=== PATIENT | female | born 1935 | race Hispanic/Latino ===

== ENCOUNTER 2017-09-06 18:02 | Emergency (ER) | payer MEDICARE ==
[2017-09-06 18:03] VITALS: BMI 21.1
--- NOTE | 2017-09-06 18:27 | ED PDOC ---
Arrival/HPI - General Historian: Patient, Family - History of Present Illness Time/Duration: Prior to Arrival (~ 4pm) Symptom Onset: Sudden Symptom Course: Unchanged Severity Level: Mild Activities at Onset: Other (walking) Context: Walking, Home - General Chief Complaint: Finger,Hand,&Wrist Time Seen by Provider: 09/06/17 18:04 - History of Present Illness Narrative History of Present Illness (Text): 09/06/17 18:23 pt p/w + accidental trip and fall ~ 4pm this afternoon while at home; pt states she fell with her left hand outstretched and left 4th finger suffered injury since the fall; pt is now unable to range the left 4th finger; + mild head injury but no syncope pre/post fall; pt states no fever/chills/sweats, no cp/sob /palpitations, no abd pain, no n/v, no numbness/tingling, no urinary/bowel changes, no gross bleeding; pt denied other complaints pt states no gross pain pt remained able to ambulate no slurr speech/facial changes noted PCP: andra pt is right hand dominate (Nnamdi Valladares) Past Medical History - Provider Review Nursing Documentation Reviewed: Yes - Travel History Have you recently traveled outside [place] w/in the past 3 mons?: No - Past History Past History: No Previous - Infectious Disease Hx of Infectious Diseases: None - Reproductive Menopause: Yes Currently : No - Cardiac Hx Cardiac Arrhythmia: Yes Hx Hypertension: Yes Other/Comment: Defib - Hematological/Oncological Hx Cancer: Yes (Leukemia) - Psychiatric Hx Substance Use: No - Surgical History Hx Joint Replacement: Yes (right knee replacement) Other/Comment: Left arm metal plate Family/Social History - Physician Review Nursing Documentation Reviewed: Yes Family/Social History: No Known Family HX Smoking Status: Never Smoked Hx Alcohol Use: No Hx Substance Use: No Hx Substance Use Treatment: No Allergies/Home Meds Allergies/Adverse Reactions: Allergies No Known Allergies Allergy (Verified 09/06/17 18:13) Home Medications: Home Meds Medication Instructions Recorded Confirmed Allopurinol [Zyloprim] 100 mg PO BID 09/06/17 09/06/17 Aspirin [Ecotrin] 81 mg PO DAILY 09/06/17 09/06/17 Carvedilol [Coreg] 6.25 mg PO BID 09/06/17 09/06/17 Colchicine [Colcrys] 0.6 mg PO DAILY 09/06/17 09/06/17 Digoxin [Lanoxin] 0.5 mg PO DAILY 09/06/17 09/06/17 Furosemide [Lasix] 10 mg PO DAILY 09/06/17 09/06/17 Saxagliptin HCl [Onglyza] 5 mg PO DAILY 09/06/17 09/06/17 Review of Systems - Review of Systems Constitutional: Normal Eyes: Normal ENT: Normal Respiratory: Normal Cardiovascular: Normal Gastrointestinal: Normal Genitourinary Female: Normal Musculoskeletal: Other (left 4th finger swelling/pain, decr ROM) Skin: Normal Neurological: Normal Endocrine: Normal Hemo/Lymphatic: Normal Physical Exam Vital Signs Reviewed: Yes Temperature: Afebrile Blood Pressure: Hypertensive Pulse: Regular Respiratory Rate: Normal Appearance: Positive for: Well-Appearing, Non-Toxic, Comfortable, Other (GCS = 15, oriented x 3, cooperative, sitting on exam table, NAD, follows command with ease; oriented x 3) Pain Distress: None Mental Status: Positive for: Alert and Oriented X 3 - Systems Exam Head: Present: Atraumatic, Normocephalic, Other (mild bi-temporal wasting) Pupils: Present: PERRL, Other (wearing eye glasses, visual field intact b/l, no nystagmus, no photophobia) Extroacular Muscles: Present: EOMI Conjunctiva: Present: Normal Ears: Present: Normal Mouth: Present: Moist Mucous Membranes Pharnyx: Present: Normal Nose (External): Present: Atraumatic Nose (Internal): Present: Normal Inspection Neck: Present: Normal Range of Motion, Trachea Midline, Other (no step off). No : Meningeal Signs, MIDLINE TENDERNESS Respiratory/Chest: Present: Clear to Auscultation, Good Air Exchange Cardiovascular: Present: Regular Rate and Rhythm, Normal S1, S2. No: Murmurs Abdomen: Present: Normal Bowel Sounds, Other (thin female, no focal tenderness, no masses/rebound/guarding/rigidity, no chapman's sign, no mcburney's point tenderness) Back: Present: Normal Inspection. No: CVA Tenderness, Midline Tenderness Upper Extremity: Present: NORMAL PULSES, Neurovascularly Intact, Other (+ left 4th finger deformities at PIP with + swelling/ecchymosis; decr ROM to left 4th finger, neurovasc intact b/l, strength 5-/5 b/l, rest of the upper limbs are normal) Lower Extremity: Present: Normal Inspection, NORMAL PULSES, Normal ROM, Neurovascularly Intact Neurological: Present: GCS=15, CN II-XII Intact, Speech Normal Skin: Present: Warm, Normal Color Psychiatric: Present: Alert, Oriented x 3 Vital Signs Temp Pulse Resp BP Pulse Ox 09/06/17 18:07 98.2 F 60 18 193/73 H 98 Medical Decision Making Re-evaluation Time: 19:54 Reassessment Condition: Improving,but remains with symptoms - RAD Interpretation Detail Drafter: ED Physician ED Course and Treatment: 09/06/17 19:08 -Request by Dr. Valladares to help with the reduction procedure. -Sensation intact, motor 5/5, lt. hand 4th digit PIPJ dorsal dislocation noted with the skin intact but the radiology film show there is 4th PIPJ fracture, axial traction with success by 1 attempt, finger splint applied with shasha tapping, sensation intact, motor 5/5. -Post reduction xray ordered which reduction with success and the fracture site is more obvious, pt. and the family is awared of the fracture. (Carl Trimble) 09/06/17 18:24 Impression: trip and fall, left hand injury i have consider all the differential diagnosis regarding pt's chief medical complaints/clinical findings, including but are not limited to: r/o fx/ dislocation A/P: left 4th finger pain/swelling - xray - ? splint - observe - supportive care 09/06/17 19:56 pt is doing well post reduction pt/family are made aware of pt's medical results pt is encouraged RICE txt pt is encouraged ice 15min/hr over the next 1-2 days pt will f/u as directed pt will be discharged (Nnamdi Valladares) - RAD Interpretation Narrative RAD Interpretations (Text): 09/06/17 19:55 left hand xray 1: + dislocation/avulsion fx to 4th digit left hand xray 2 (post reduction): relocated finger, + 4th finger prox phalanx fx (Nnamdi Valladares) Radiology Orders: 09/06/17 18:22 HAND LEFT 3 VIEWS ROUTINE [RAD] Stat 09/06/17 19:08 HAND LEFT 4TH DIGIT (FINGER) [RAD] Stat - Medication Orders Current Medication Orders: Discontinued Medications Oxycodone/Acetaminophen (Percocet 5/325 Mg Tab) 1 tab PO STAT STA Stop: 09/06/17 19:05 Last Admin: 09/06/17 19:36 Dose: Not Given Non-Admin Reason: Patient Refused Disposition/Present on Arrival - Present on Arrival Any Indicators Present on Arrival: No History of DVT/PE: No History of Uncontrolled Diabetes: No Urinary Catheter: No History of Decub. Ulcer: No History Surgical Site Infection Following: None - Disposition Have Diagnosis and Disposition been Completed?: Yes Disposition Time: 19:49 Patient Plan: Discharge - Disposition Diagnosis: Dislocation, finger closed, Finger fracture, left Disposition: HOME/ ROUTINE Patient Problems: Current Active Problems Problem Status Onset Dislocation, finger closed Acute Finger fracture, left Acute Condition: STABLE Discharge Instructions (ExitCare): Finger Fracture, Finger Dislocation (DC) Print Language: KENYAN Additional Instructions: Make sure to see your doctor in 1-2 days DRINK PLENTY OF FLUIDS KEEP the splint clean and dry ICE your hand 15min/hr over the next 1-2 days take your medications as prescribed RETURN TO ED IF worse pain, cant breath, persistent vomiting, high fever >101- 102 for hours, altered behavior, unable to urinate, heavy/persistent bleeding, passing out, chest pain, or other medical emergencies Prescriptions: traMADol [Ultram] 50 mg PO BID PRN #12 tab PRN Reason: Pain, Moderate (4-7) Referrals: Suzanna Yeung MD [Staff Provider] - Follow up with primary Juan Jose Johnson MD [Staff Provider] - Follow up with primary Forms: [employer] (Romanian)
[2017-09-06] MEDS ORDERED: Oxycodone/Acetaminophen 5/325 mg Tab PO STA (19:04)
[2017-09-06 19:59] VITALS: BP 176/82; PULSE 65; RESP 17; TEMP 98.1; O2SAT 99
--- NOTE | 2017-09-07 09:05 | RAD ---
PROCEDURE: Left Hand Radiographs. HISTORY: left hand, 4th finger pain, s/p trip and fall COMPARISON: None. FINDINGS: BONES: There is no fracture appreciate or destructive bony lesion. JOINTS: NormalThere is a dislocation of the middle phalanx posterior to the proximal phalanx left ring finger with potential chip or avulsion fracture related to the base of the middle phalanx. Limited local soft tissue edema is identified. Otherwise, degenerative changes seen throughout the digits diffusely, which appear severe. Similar severe degenerative changes seen at the basal joint and the navicular trapezium and navicular trapezius articulations. SOFT TISSUES: Normal. OTHER FINDINGS: None. IMPRESSION: Dorsal dislocation middle phalanx relative to the proximal phalanx left ring finger with potential tiny avulsion fracture related to the base of the middle phalanx.
--- NOTE | 2017-09-07 09:43 | RAD ---
PROCEDURE: Left ring finger radiographs. HISTORY: post reduction COMPARISON: Left hand radiographs 09/06/2014. TECHNIQUE: AP radiograph of the left hand, as well as spot oblique and lateral images of left ring finger were obtained. FINDINGS: LEFT RING FINGER: Middle phalanx left ring finger is been reduced with a tiny chip or avulsion fracture seen at the volar side of the joint within soft tissues with limited local soft tissue edema surrounding the joint. No additional fracture identified. JOINTS: As above. SOFT TISSUES: As above. OTHER FINDINGS: None. IMPRESSION: Anatomy reduction of middle phalanx dislocation left ring finger with tiny chip fracture seen anterior to the proximal interphalangeal joint as discussed above.
== END 2017-09-06 19:58 | disposition home or self-care (01) ==
LOC: ED 18:02
DX: S62.615A Displaced fracture of proximal phalanx of left ring finger, initial encounter for closed fracture (principal); W01.0XXA Fall on same level from slipping, tripping and stumbling without subsequent striking against object, initial encounter; Y92.009 Unspecified place in unspecified non-institutional (private) residence as the place of occurrence of the external cause

== ENCOUNTER 2018-07-04 23:09 | Inpatient (IN) | payer MEDICARE ==
[2018-07-04 23:23] VITALS: BMI 20.5
--- NOTE | 2018-07-05 00:33 | ED PDOC ---
Arrival/HPI - General Chief Complaint: Trauma Time Seen by Provider: 07/04/18 23:09 Historian: Patient, Family - History of Present Illness Narrative History of Present Illness (Text): 07/04/18 23:15 83 year old female, whose past medical history includes a-fib and CHF, presents to the emergency department brought in by family after she tripped and hit the back of her head on a wooden piece of couch approximately 6 hours prior to arrival. Patient denies any symptoms prior to fall. Patient is not on any blood thinners. Patient recalls the event and denies any loss of consciousness. Patient is complaining of neck pain, but denies any fever, chills, chest pain, shortness of breath, nausea, vomiting, diarrhea, urinary symptoms, back pain, headache, dizziness, or any other complaints. PMD: Dr. Balderas Time/Duration: Other (6 hours) Symptom Onset: Sudden Symptom Course: Unchanged Activities at Onset: Light Context: Tripped Past Medical History - Provider Review Nursing Documentation Reviewed: Yes - Past History Past History: No Previous - Infectious Disease Hx of Infectious Diseases: None - Cardiac Hx Cardiac Arrhythmia: Yes Hx Hypertension: Yes Other/Comment: Defib. AICD - Hematological/Oncological Hx Cancer: Yes (Leukemia) - Psychiatric Hx Substance Use: No - Surgical History Hx Joint Replacement: Yes (right knee replacement) Other/Comment: Left arm metal plate - Anesthesia Hx Anesthesia: Yes Hx Anesthesia Reactions: No Hx Malignant Hyperthermia: No Family/Social History - Physician Review Nursing Documentation Reviewed: Yes Family/Social History: No Known Family HX Smoking Status: Never Smoked Hx Alcohol Use: No Hx Substance Use: No Hx Substance Use Treatment: No Allergies/Home Meds Allergies/Adverse Reactions: Allergies No Known Allergies Allergy (Verified 09/06/17 18:13) Home Medications: Home Meds Medication Instructions Recorded Confirmed Aspirin [Ecotrin] 81 mg PO DAILY 09/06/17 07/04/18 Carvedilol [Coreg] 6.25 mg PO BID 09/06/17 07/04/18 Saxagliptin HCl [Onglyza] 5 mg PO DAILY 09/06/17 07/04/18 Bosutinib [Bosulif] 100 mg PO TID 07/04/18 07/04/18 Digoxin 0.125 mg PO DAILY 07/04/18 07/04/18 Furosemide [Lasix] 20 mg PO DAILY 07/04/18 07/04/18 [id number] Ethyl Esters [OMEGA 3] 1 tab PO DAILY 07/04/18 07/04/18 Ubidecarenone [Coq-10] 100 mg PO DAILY 07/04/18 07/04/18 Vit C/E/Zn/Coppr/Lutein/Zeaxan 1 tab PO DAILY 07/04/18 07/04/18 [Preservision Areds 2 Softgel] Review of Systems - Physician Review All systems were reviewed & negative as marked: Yes - Review of Systems Constitutional: absent: Fevers, Other (Chills) Respiratory: absent: SOB Cardiovascular: absent: Chest Pain Gastrointestinal: absent: Diarrhea, Nausea, Vomiting Genitourinary Female: absent: Dysuria, Frequency, Hematuria Musculoskeletal: Neck Pain. absent: Back Pain Neurological: absent: Headache, Dizziness, Other (loc) Physical Exam Vital Signs Reviewed: Yes Vital Signs Temp Pulse Resp BP Pulse Ox 07/04/18 23:25 97.3 F L 87 18 172/77 H 98 Temperature: Afebrile Blood Pressure: Hypertensive Pulse: Regular Respiratory Rate: Normal Appearance: Positive for: Well-Appearing, Non-Toxic, Comfortable Pain Distress: None Mental Status: Positive for: Alert and Oriented X 3 - Systems Exam Head: Present: Atraumatic, Normocephalic Pupils: Present: PERRL Extroacular Muscles: Present: EOMI Conjunctiva: Present: Normal Mouth: Present: Moist Mucous Membranes Neck: Present: Normal Range of Motion Respiratory/Chest: Present: Clear to Auscultation, Good Air Exchange. No: Respiratory Distress, Accessory Muscle Use Cardiovascular: Present: Regular Rate and Rhythm, Normal S1, S2. No: Murmurs Abdomen: No: Tenderness, Distention, Peritoneal Signs Back: Present: Normal Inspection Upper Extremity: Present: Normal Inspection. No: Cyanosis, Edema Lower Extremity: Present: Normal Inspection. No: Edema Neurological: Present: GCS=15, CN II-XII Intact, Speech Normal Skin: Present: Warm, Dry, Normal Color. No: Rashes Psychiatric: Present: Alert, Oriented x 3, Normal Insight, Normal Concentration Medical Decision Making ED Course and Treatment: 07/04/18 23:15 Impression: 83 year old female presents complaining of neck pain after she tripped and hit the back of her head on a wooden piece of couch approximately 6 hours ago. Plan: -- Cervical Spine w/o contrast CT -- Head CT w/o Contrast -- Reassess and disposition Progress Notes: EXAM: CT scan of the head. Electronically signed on Jul 05, 2018 12:19:28 AM EST by: Sesar Lucio M.D. IMPRESSION: 1. Age-appropriate cerebellar and cerebral atrophy. 2. Mild chronic microvascular disease. 3. No evidence of acute intracranial pathology. EXAM: CT scan of the cervical spine without contrast. Electronically signed on Jul 05, 2018 12:29:51 AM EST by: Sesar Lucio M.D. Impression: Oblique displaced fracture of the base of the odontoid. An emergent surgical consultation is recommended. 07/05/18 00:[address] Mora who is aware and agrees with the plan. He recommends patient be place in a c-collar and to admit patient. 07/05/18 00:48 C-Collar placed around patient's neck. 07/05/18 00:53 Case discussed with medical record retrieval specialist and Dr. Su who is aware and agrees with the plan. Accepts patient into hospitalist service. 07/05/18 01:12 EKG shows sinus rhythm at 80 BPM with PVCs. LAD. Interpreted by me. - RAD Interpretation Radiology Orders: 07/04/18 23:23 CERVICAL SPINE W/O CONTRAST [CT] Stat HEAD W/O CONTRAST [CT] Stat - Scribe Statement The provider has reviewed the documentation as recorded by the Skip Coppola Provider Scribe Attestation: All medical record entries made by the Jamilahibkristy were at my direction and personally dictated by me. I have reviewed the chart and agree that the record accurately reflects my personal performance of the history, physical exam, medical decision making, and the department course for this patient. I have also personally directed, reviewed, and agree with the discharge instructions and disposition. Disposition/Present on Arrival - Present on Arrival Any Indicators Present on Arrival: No History of DVT/PE: No History of Uncontrolled Diabetes: No Urinary Catheter: No History of Decub. Ulcer: No History Surgical Site Infection Following: None - Disposition Have Diagnosis and Disposition been Completed?: Yes Diagnosis: C2 cervical fracture Disposition: HOSPITALIZED Disposition Time: 00:55 Condition: GUARDED
--- NOTE | 2018-07-05 00:58 | CP.PCM.HP ---
<Stephen Conn - Last Filed: 07/05/18 03:46> History of Present Illness - History of Present Illness History of Present Illness: PGY-1 H&P for Dr. Su CC: Neck pain s/p mechanical fall HPI: Patient is an 83 year old female, whose past medical history includes atrial fibrillation with AICD (on ASA), CHF, [place], leukemia (on Bosutinib), DM, gout, macular degeneration, presented to the emergency department brought in by daughter after she tripped and hit the back of her head on a wooden piece of couch approximately 6 hours prior to arrival. Patient states that she just got home from having dinner with her friends and tripped. She denies feeling dizzy, weak, or any other symptoms prior to her fall. She denies losing consciousness before or after the fall and remembers everything that happened. Patient is on Aspirin and denies being on blood thinners. Patient denies any fever, chills, chest pain, shortness of breath, nausea, vomiting, diarrhea, urinary symptoms, back pain, headache, dizziness, or any other complaints. 12 sytem ROS reviewed and negative except mentioned in HPI PMHx: Atrial fibrillation with AICD (only on ASA), IN, CHF, leukemia (on Bosutinib), DM, gout, macular degeneration PSHx: R Knee replacement, left arm metal plate Social Hx: denies tobacco, or, and drug use. 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 Family Hx: Brother of [place] age 54, another brother in his 20's for cardiac reasons. Allergies:NKDA Meds: see AUG PMD: Dr. Balderas Ship Propeller Finisher: Dr. Goff Heme/onc: Dr. Moore POC: Criselda (daughter): [phone] Present on Admission - Present on Admission Any Indicators Present on Admission: No History of DVT/PE: No History of Uncontrolled Diabetes: No Urinary Catheter: No Decubitus Ulcer Present: No Review of Systems - Review of Systems All systems: reviewed and no additional remarkable complaints except Past Patient History - Infectious Disease Hx of Infectious Diseases: None - Past Social History Smoking Status: Never Smoked - CARDIAC Hx Cardia Arrhythmia: Yes Hx Hypertension: Yes Other/Comment: Defib. AICD - HEMATOLOGICAL/ONCOLOGICAL Hx Cancer: Yes (Leukemia) - PSYCHIATRIC Hx Substance Use: No - SURGICAL HISTORY Hx Joint Replacement: Yes (right knee replacement) Other/Comment: Left arm metal plate - ANESTHESIA Hx Anesthesia: Yes Hx Anesthesia Reactions: No Hx Malignant Hyperthermia: No Meds Allergies/Adverse Reactions: Allergies Allergy/AdvReac Type Severity Reaction Status Date / Time No Known Allergies Allergy Verified 09/06/17 18:13 Physical Exam - Constitutional Appears: Well, Non-toxic, No Acute Distress - Head Exam Head Exam: ATRAUMATIC, NORMAL INSPECTION - Eye Exam Eye Exam: EOMI, Normal appearance. absent: Scleral icterus Pupil Exam: NORMAL ACCOMODATION - ENT Exam ENT Exam: Mucous Membranes Moist, Normal Exam - Neck Exam Additional comments: Cervical collar in place - Respiratory Exam Respiratory Exam: Clear to Auscultation Bilateral. absent: Rales, Rhonchi, Wheezes, Respiratory Distress - Cardiovascular Exam Cardiovascular Exam: REGULAR RHYTHM, +S1, +S2. absent: Gallop, Rubs, Systolic Murmur - GI/Abdominal Exam GI & Abdominal Exam: Normal Bowel Sounds, Soft. absent: Firm, Guarding, Tenderness - Extremities Exam Extremities exam: Positive for: normal inspection, pedal pulses present. Negative for: calf tenderness, pedal edema - Neurological Exam Neurological exam: Alert, CN II-XII Intact, Normal Gait, Oriented x3 Additional comments: Rapid alternating movement intact, no sensory and motor deficits on upper and lower extremities. - Psychiatric Exam Psychiatric exam: Normal Affect, Normal Mood - Skin Skin Exam: Dry, Intact, Normal Color, Warm Results - Vital Signs Recent Vital Signs: Last Vital Signs Temp 97.3 F L 07/04/18 23:25 Pulse 87 07/04/18 23:25 Resp 18 07/04/18 23:25 BP 172/77 H 07/04/18 23:25 Pulse Ox 98 07/04/18 23:25 - Labs Result Diagrams: 07/05/18 00:52 07/05/18 00:52 Assessment & Plan - Assessment and Plan (Free Text) Assessment: Patient is an 83 year old female, whose past medical history includes atrial fibrillation with AICD (on ASA), CHF, leukemia (on Bosutinib), DM, gout, macular degeneration, presenting with neck pain after a mechanical fall. Plan: Neck pain s/p mechanical fall - Head CT: Age-appropriate cerebellar and cerebral atrophy. Mild chronic microvascular disease. No evidence of acute intracranial pathology. - CT Cervical spine: Oblique displaced fracture of the base of the odontoid. An emergent surgical consultation is recommended. - Neurosurgery consulted, Dr. Mora - Keep cervical collar on until cleared by neurosurgery - Neuro and neurovascular checks Q4 - Keep patient NPO - IVF: NS @ 50 mls/hr - Aspiration precautions - Tylenol 650mg PO Q6 PRN Abnormal EKG - Patient is asymptomatic, has prior history of IN's - EKG: Sinus rhythm with occ premature ventricular complexes. T wave abnormality, consider lateral ischemia - Serial EKG's - Troponin:0.06 x 1 - Trend Troponins - Cardiology consulted, Dr. Goff Transaminitis - AST/ALT: 50/31 - Continue to monitor CKD, possible stage 3 - BUN/Cr: 43/1.4 - Avoid nephrotoxic agents - Continue to monitor History of Atrial fibrillation - Aspirin 81mg PO QD - Coreg 6.25mg PO BID Hx of reduced ejection fraction heart failure - Lasix 20mg PO QD - Digoxin 0.125 PO QD - Digoxin level ordered Hx of diabetes - Patient unsure of diabetes status - Hold diabetic medications - HbA1C ordered Prophylaxis: - GI: Protonix 40mg IVP QD Case discussed with Dr. Sharlene Conn, PGY-1 <Lois Su - Last Filed: 07/05/18 05:01> Results - Vital Signs Recent Vital Signs: Last Vital Signs Temp 97.8 F 07/05/18 02:00 Pulse 82 07/05/18 02:00 Resp 20 07/05/18 02:23 BP 163/69 H 07/05/18 02:00 Pulse Ox 97 07/05/18 02:00 - Labs Result Diagrams: 07/05/18 00:52 07/05/18 00:52 Labs: Laboratory Results - last 24 hr 07/05/18 07/05/18 07/05/18 00:52 00:52 00:52 WBC 21.2 H RBC 4.02 Hgb 12.9 Hct 39.4 MCV 98.0 MCH 32.1 MCHC 32.7 RDW 14.2 Plt Count 229 MPV 11.2 H Gran % 76.0 H Lymph % (Auto) 14.8 L [place] % (Auto) 8.5 H Eos % (Auto) 0.2 L Baso % (Auto) 0.5 Gran # 16.14 H Lymph # (Auto) 3.1 [place] # (Auto) 1.8 H Eos # (Auto) 0.1 Baso # (Auto) 0.10 PT 11.0 INR 0.97 APTT 25.3 Sodium 143 Potassium 4.7 Chloride 106 Carbon Dioxide 29 Anion Gap 13 BUN 43 H Creatinine 1.4 H Est GFR ( Amer) 43 Est GFR (Non-Af Amer) 36 Random Glucose 157 H Calcium 9.3 Total Bilirubin 0.5 AST 50 H ALT 31 Alkaline Phosphatase 154 H Lactate Dehydrogenase Total Creatine Kinase Troponin I Total Protein 7.9 Albumin 4.1 Globulin 3.8 Albumin/Globulin Ratio 1.1 Digoxin 07/05/18 07/05/18 00:52 00:52 WBC RBC Hgb Hct MCV MCH MCHC RDW Plt Count MPV Gran % Lymph % (Auto) [place] % (Auto) Eos % (Auto) Baso % (Auto) Gran # Lymph # (Auto) [place] # (Auto) Eos # (Auto) Baso # (Auto) PT INR APTT Sodium Potassium Chloride Carbon Dioxide Anion Gap BUN Creatinine Est GFR ( Amer) Est GFR (Non-Af Amer) Random Glucose Calcium Total Bilirubin AST ALT Alkaline Phosphatase Lactate Dehydrogenase 700 H Total Creatine Kinase 82 Troponin I 0.06 Total Protein Albumin Globulin Albumin/Globulin Ratio Digoxin 0.5 L Attending/Attestation - Attestation I have personally seen and examined this patient.: Yes I have fully participated in the care of the patient.: Yes I have reviewed all pertinent clinical information: Yes Notes (Text): 07/05/18 05:00 Patient was seen when she was in bed # 3 in the ER. Agree with history, physical examination, assessment and plan.
[2018-07-05 01:07] LABS: BASO # 0.1 K/mm3 (0.0-2.0); BASO % 0.5 % (0.0-3.0); EOS # 0.1 (0.0-0.7); EOS % 0.2 % (1.5-5.0); GRAN # 16.14 (1.4-6.5); HEMOGLOBIN 12.9 g/dL (12.0-16.0); LYMPH # 3.1 (1.2-3.4); LYMPH % 14.8 % (22.0-35.0); MEAN CORPUSCULAR HEMOGLOBIN 32.1 pg (25.0-35.0); MEAN CORPUSCULAR HGB CONC 32.7 g/dl (31.0-37.0); MEAN PLATELET VOLUME 11.2 fl (7.0-11.0); MONO # 1.8 (0.1-0.6); MONO % 8.5 % (1.0-6.0); RBC 4.02 10^6/uL (3.5-6.1); RED CELL DISTRIBUTION WIDTH 14.2 % (11.5-14.5); WHITE BLOOD COUNT 21.2 10^3/uL (4.5-11.0)
[2018-07-05 01:10] LABS: ALB/GLOB RATIO 1.1 (1.1-1.8); ALBUMIN 4.1 g/dL (3.0-4.8); CALCIUM 9.3 mg/dL (8.4-10.5)
[2018-07-05 01:18] LABS: INR 0.97; PARTIAL THROMBOPLASTIN TIME 25.3 Seconds (25.1-36.5)
[2018-07-05 02:12] LABS: TROPONIN I 0.06 ng/mL
[2018-07-05 06:22] LABS: BASO # 0.14 K/mm3 (0.0-2.0); BASO % 0.6 % (0.0-3.0); EOS # 0.1 (0.0-0.7); EOS % 0.4 % (1.5-5.0); GRAN # 15.72 (1.4-6.5); GRAN % 71.2 % (50.0-68.0); HEMOGLOBIN 11.9 g/dL (12.0-16.0); LYMPH # 3.3 (1.2-3.4); MEAN CELL VOLUME 96.8 fl (80.0-105.0); MEAN CORPUSCULAR HEMOGLOBIN 31.6 pg (25.0-35.0); MEAN CORPUSCULAR HGB CONC 32.6 g/dl (31.0-37.0); MEAN PLATELET VOLUME 10.9 fl (7.0-11.0); MONO # 2.8 (0.1-0.6); MONO % 12.8 % (1.0-6.0); RBC 3.77 10^6/uL (3.5-6.1); RED CELL DISTRIBUTION WIDTH 14.2 % (11.5-14.5); WHITE BLOOD COUNT 22.1 10^3/uL (4.5-11.0)
[2018-07-05 06:34] LABS: ALBUMIN 3.6 g/dL (3.0-4.8)
[2018-07-05] MEDS: Sodium Chloride 0.9% 1,000 ML IV SCH (08:03)
--- NOTE | 2018-07-05 08:17 | CARD ---
APPROVED REPORT Date of service: 07/05/2018 EKG Measurement Heart [id number] <Conclusion> Sinus rhythm with occasional premature ventricular complexes Left axis deviation Nonspecific intraventricular block Anteroseptal infarct, age undetermined T wave abnormality, consider lateral ischemia Abnormal ECG
--- NOTE | 2018-07-05 09:04 | CP.PCM.CON ---
History of Present Illness - History of Present Illness History of Present Illness: fall type 2 odoantoid fracture Patient is an 83 year old female, whose past medical history includes atrial fibrillation with AICD (on ASA), CHF, [place], leukemia (on Bosutinib), DM, gout, macular degeneration, presented to the emergency department brought in by daughter after she tripped and hit the back of her head on a wooden piece of couch approximately 6 hours prior to arrival. Patient states that she just got home from having dinner with her friends and tripped. She denies feeling dizzy, weak, or any other symptoms prior to her fall. She denies losing consciousness before or after the fall and remembers everything that happened. Patient is on Aspirin and denies being on blood thinners CT shows type 2 odoantoid fractaure displaced Past Patient History - Infectious Disease Hx of Infectious Diseases: None - Past Social History Smoking Status: Never Smoked - CARDIAC Hx Cardia Arrhythmia: Yes Hx Hypertension: Yes Other/Comment: Defib. AICD - HEMATOLOGICAL/ONCOLOGICAL Hx Cancer: Yes (Leukemia) - MUSCULOSKELETAL/RHEUMATOLOGICAL Hx Falls: Yes - PSYCHIATRIC Hx Substance Use: No - SURGICAL HISTORY Hx Joint Replacement: Yes (right knee replacement) Other/Comment: Left arm metal plate - ANESTHESIA Hx Anesthesia: Yes Hx Anesthesia Reactions: No Hx Malignant Hyperthermia: No Meds Allergies/Adverse Reactions: Allergies Allergy/AdvReac Type Severity Reaction Status Date / Time No Known Allergies Allergy Verified 09/06/17 18:13 - Medications Medications: Current Medications Acetaminophen (Tylenol 325mg Tab) 650 mg PO Q6H PRN PRN Reason: Pain, moderate (4-7) Aspirin (Ecotrin) 81 mg PO DAILY [facility] Carvedilol (Coreg) 6.25 mg PO BID [facility] Digoxin (Digoxin) 0.125 mg PO DAILY [facility] Furosemide (Lasix) 20 mg PO DAILY [facility] Heparin Sodium (Porcine) (Heparin) 5,000 units SC Q12 [facility]; Protocol Sodium Chloride (Sodium Chloride 0.9%) 1,000 mls @ 50 mls/hr IV .Q20H [facility] Last Admin: 07/05/18 08:03 Dose: 50 mls/hr Bosutinib [Bosulif] (100 Mg (Home Med)) 100 mg PO TID [facility] Pantoprazole Sodium (Protonix Inj) 40 mg IVP DAILY [facility] awake alert has good st for agae no focal weakness dtr 0/4 no sensory deficits Results - Vital Signs Recent Vital Signs: Last Vital Signs Temp 97.8 F 07/05/18 06:00 Pulse 84 07/05/18 06:00 Resp 20 07/05/18 06:00 BP 160/91 H 07/05/18 06:00 Pulse Ox 96 07/05/18 06:00 - Labs Result Diagrams: 07/05/18 05:00 07/05/18 05:00 Labs: Laboratory Results - last 24 hr 07/05/18 07/05/18 07/05/18 00:52 00:52 00:52 WBC 21.2 H RBC 4.02 Hgb 12.9 Hct 39.4 MCV 98.0 MCH 32.1 MCHC 32.7 RDW 14.2 Plt Count 229 MPV 11.2 H Gran % 76.0 H Lymph % (Auto) 14.8 L Elliott % (Auto) 8.5 H Eos % (Auto) 0.2 L Baso % (Auto) 0.5 Gran # 16.14 H Lymph # (Auto) 3.1 Elliott # (Auto) 1.8 H Eos # (Auto) 0.1 Baso # (Auto) 0.10 PT 11.0 INR 0.97 APTT 25.3 Sodium 143 Potassium 4.7 Chloride 106 Carbon Dioxide 29 Anion Gap 13 BUN 43 H Creatinine 1.4 H Est GFR ( Amer) 43 Est GFR (Non-Af Amer) 36 Random Glucose 157 H Calcium 9.3 Total Bilirubin 0.5 AST 50 H ALT 31 Alkaline Phosphatase 154 H Lactate Dehydrogenase Total Creatine Kinase Troponin I Total Protein 7.9 Albumin 4.1 Globulin 3.8 Albumin/Globulin Ratio 1.1 Digoxin 07/05/18 07/05/18 07/05/18 00:52 00:52 05:00 WBC 22.1 H RBC 3.77 Hgb 11.9 L Hct 36.5 MCV 96.8 MCH 31.6 MCHC 32.6 RDW 14.2 Plt Count 209 MPV 10.9 Gran % 71.2 H Lymph % (Auto) 15.0 L Elliott % (Auto) 12.8 H Eos % (Auto) 0.4 L Baso % (Auto) 0.6 Gran # 15.72 H Lymph # (Auto) 3.3 Elliott # (Auto) 2.8 H Eos # (Auto) 0.1 Baso # (Auto) 0.14 PT INR APTT Sodium Potassium Chloride Carbon Dioxide Anion Gap BUN Creatinine Est GFR ( Amer) Est GFR (Non-Af Amer) Random Glucose Calcium Total Bilirubin AST ALT Alkaline Phosphatase Lactate Dehydrogenase 700 H Total Creatine Kinase 82 Troponin I 0.06 Total Protein Albumin Globulin Albumin/Globulin Ratio Digoxin 0.5 L 07/05/18 05:00 WBC RBC Hgb Hct MCV MCH MCHC RDW Plt Count MPV Gran % Lymph % (Auto) Elliott % (Auto) Eos % (Auto) Baso % (Auto) Gran # Lymph # (Auto) Elliott # (Auto) Eos # (Auto) Baso # (Auto) PT INR APTT Sodium 141 Potassium 4.4 Chloride 107 Carbon Dioxide 29 Anion Gap 9 L BUN 36 H Creatinine 1.2 Est GFR ( Amer) 52 Est GFR (Non-Af Amer) 43 Random Glucose 135 H Calcium 9.0 Total Bilirubin 0.4 AST 48 H ALT 37 Alkaline Phosphatase 150 H Lactate Dehydrogenase Total Creatine Kinase Troponin I Total Protein 7.1 Albumin 3.6 Globulin 3.5 Albumin/Globulin Ratio 1.0 L Digoxin Assessment & Plan - Assessment and Plan (Free Text) Assessment: type 2 odontoid fracture displaced this has an extremely low possibility of healing without fusion/fixation Need to talk to daughter later today this needs to be arranged electivly as she will need med clearance and will have to get implants in. In mean time keep in bed with collar on
[2018-07-05] MEDS: Digoxin 125 mcg (0.125 mg) Tab PO SCH (09:55)
[2018-07-05 10:10] LABS: TROPONIN I 0.14 ng/mL
--- NOTE | 2018-07-05 10:30 | CT ---
Date of service: 07/04/2018 PROCEDURE: CT Cervical Spine without contrast HISTORY: s/p fall r/o fx COMPARISON: None available. TECHNIQUE: Axial computed tomography images were obtained of the cervical spine without the use of intravenous contrast. Coronal and sagittal reformatted images were created and reviewed. Radiation dose: Total exam DLP = 395.89 mGy-cm. This CT exam was performed using one or more of the following dose reduction techniques: Automated exposure control, adjustment of the mA and/or kV according to patient size, and/or use of iterative reconstruction technique. FINDINGS: VERTEBRAE: The vertebral bodies are maintained in height. There is an oblique fracture through the base of the odontoid process. It is mildly displaced with the cephalad fragment displaced dorsally by approximately 5 mm. There is no resulting narrowing of the central spinal canal. There is no other fracture identified. The atlantoaxial articulation is preserved. DISCS/SPINAL CANAL/NEURAL FORAMINA: There narrowing of the C4-5, C5-6 and C6-7 intervertebral disc spaces consistent with degenerative disc disease. Multilevel neural foraminal stenosis is noted bilaterally. PARASPINAL SOFT TISSUES: No prevertebral soft tissue swelling. OTHER FINDINGS: None. IMPRESSION: Displaced oblique fracture mid odontoid process without evidence of central spinal canal stenosis. The chronicity of this fracture is not evident from this examination. Multilevel degenerative disc disease as described. The preliminary findings for this examination were reported by [facility] at 12:29 a.m. on 07/05/2018. There is concurrence of this report with the preliminary findings.
--- NOTE | 2018-07-05 12:37 | CT ---
Date of service: 07/04/2018 PROCEDURE: CT HEAD WITHOUT CONTRAST. HISTORY: s/p fall r/o ICH and fx COMPARISON: None available. TECHNIQUE: Axial computed tomography images were obtained through the head/brain without intravenous contrast. Radiation dose: Total exam DLP = 853.75 mGy-cm. This CT exam was performed using one or more of the following dose reduction techniques: Automated exposure control, adjustment of the mA and/or kV according to patient size, and/or use of iterative reconstruction technique. FINDINGS: HEMORRHAGE: No intracranial hemorrhage. BRAIN: No mass effect or edema. Mild diffuse age-appropriate cerebral atrophy. Patchy and confluent deep/subcortical and periventricular white matter lucency consistent with age-related microvascular white matter ischemic change. No evidence of acute infarct. VENTRICLES: Unremarkable. No hydrocephalus. CALVARIUM: Unremarkable. PARANASAL SINUSES: Unremarkable as visualized. No significant inflammatory changes. MASTOID AIR CELLS: Unremarkable as visualized. No inflammatory changes. OTHER FINDINGS: None. IMPRESSION: No intracranial mass, hemorrhage or evidence of acute infarct. Chronic white matter ischemic change. Age related atrophy. The preliminary findings for this examination were reported by [facility] at 12:19 a.m. on 07/05/2018. There is concurrence of this report with the preliminary findings.
[2018-07-05 12:39] LABS: HDL CHOLESTEROL 69 mg/dL (29-60)
[2018-07-05 12:50] LABS: LDL CHOLESTEROL 90 mg/dL (0-129)
[2018-07-05] MEDS ORDERED: Digoxin 125 mcg (0.125 mg) Tab PO SCH (14:00)
--- NOTE | 2018-07-05 14:20 | CON ---
DATE: 07/05/2018 REASON FOR CONSULTATION: Preoperative evaluation, coronary artery disease, and atrial fibrillation. REQUESTING PHYSICIAN: Dr. Yancey. HISTORY: This is an 83-year-old woman known to us from outpatient followup with a history of prior myocardial infarction, paroxysmal atrial fibrillation, left ventricular dysfunction, status post ICD implant as well as a history of diabetes and chronic leukemia, who presents to the emergency room after a fall at home. She apparently had a mechanical fall after tripping. She denies any loss of consciousness. She is unaware of any palpitations and had no defibrillator firing to the best of her knowledge. Following her fall, she presented to the emergency room. A cervical spine CT showed evidence of a displaced fracture of the base of the odontoid. She has been seen by Dr. Mora, who is recommending neurosurgical intervention as he feels the displaced fracture will not heal well spontaneously. She denies any recent chest pain. She has had no recent defibrillator firings. She is unaware of any palpitations. She has had paroxysmal atrial fibrillation in the past, but is not on anticoagulant therapy at this time. PAST MEDICAL HISTORY: Her past history is notable for the problems mentioned above. She does have a history of non-insulin dependent diabetes mellitus, gout and arthritis. She underwent prior right knee replacement as well as surgery on her left arm. ALLERGIES: NONE. MEDICATIONS: Current medications include bosutinib, carvedilol 6.25 mg b.i.d., digoxin 0.125 mg daily, Ecotrin once daily, Lasix 20 mg daily, Onglyza 5 mg daily. SOCIAL HISTORY: She does not smoke or drink. 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 FAMILY HISTORY: Both parents from age-related illness. One brother from myocardial infarction at the age of 54, another brother from heart disease in his 20s, details were unclear. REVIEW OF SYSTEMS: Ten-point review of systems is otherwise unremarkable. PHYSICAL EXAMINATION: GENERAL: She is a somewhat frail-appearing very elderly woman. VITAL SIGNS: Her blood pressure is 160/70 with a pulse of 84 and regular, respirations are 14. She is afebrile. HEENT: Her neck is in a cervical collar. CHEST: Few scattered rhonchi heard. HEART: PMI is diplaced laterally with soft heart tones and a systolic murmur at the lower left sternal border. ABDOMEN: The abdomen is soft and nontender with normoactive bowel sounds. EXTREMITIES: No clubbing, cyanosis, or edema. SKIN: Warm and dry. PSYCHIATRIC: Normal mood and affect. NEUROLOGIC: No gross motor or sensory deficits notable. DIAGNOSTIC DATA: Her white count 22.1, hemoglobin and hematocrit 11.9 and 36.5 with a platelet count of 209,000. PT/PTT 11 and 25.3, potassium 4.4, BUN and creatinine 36 and 1.2. Digoxin level is 0.5. Two sets of CK were normal. The first troponin was normal and the second was 0.14, Her electrocardiogram reveals sinus rhythm with occasional PVC, left axis deviation, nonspecific ventricular conduction delay, and an anteroseptal wall myocardial fraction with secondary to ST-T changes. Chest x-ray reveals an enlarged cardiac silhouette with clear lung zavala, An ICD system is in place. IMPRESSION: 1. Recent mechanical fall with resultant cervical neck fracture, may need surgical intervention. 2. Coronary artery disease status post remote myocardial infarction, appears clinically stable. Negative CK with mild rise in second troponin, doubt acute cardiac ischemia. 3. Left ventricular dysfunction, chronic, appears compensated at the present time. 4. History of paroxysmal atrial fibrillation, currently in sinus rhythm. 5. Status post ICD implant. 6. Rest of problems as noted. RECOMMENDATIONS: Her current medications should continue for now. From a cardiac standpoint, she appears stable and optimized to proceed with surgery should it be necessary and the family agrees. She is obviously at moderately increased risk, given her known coronary disease and left ventricular dysfunction as well as advanced age; however, her risk does not appear prohibitive at this time. Thank you for this consultation. We will be happy to follow along through her hospital course as needed. Judson Boykin MD RODRIGO
[2018-07-05] MEDS: BOSUTINIB 100 MG PO SCH ×4 (14:26→17:42)
--- NOTE | 2018-07-05 15:13 | RAD ---
Date of service: 07/05/2018 HISTORY: r/o pneumonia COMPARISON: No prior. FINDINGS: LUNGS: No active pulmonary disease. PLEURA: No significant pleural effusion identified, no pneumothorax apparent. CARDIOVASCULAR: There is atherosclerotic calcification of the thoracic aortic arch. Normal cardiac size. No congestive change. AICD noted. OSSEOUS STRUCTURES: No significant abnormalities. VISUALIZED UPPER ABDOMEN: Normal. OTHER FINDINGS: None. IMPRESSION: No active disease.
[2018-07-05 15:57] LABS: TROPONIN I 0.13 ng/mL
[2018-07-06] MEDS: Sodium Chloride 0.9% 1,000 ML IV SCH (04:47)
--- NOTE | 2018-07-06 06:20 | CARD ---
APPROVED REPORT Date of service: 07/05/2018 EXAM: Two-dimensional and M-mode echocardiogram with Doppler and color Doppler. INDICATION EVAL LVEF 2D DIMENSIONS Left Atrium (2D)4.9 (1.6-4.0cm)IVSd1.5 (0.7-1.1cm) LVDd5.1 (3.9-5.9cm)PWd1.6 (0.7-1.1cm) LVDs4.3 (2.5-4.0cm)FS (%) 16.4 % LVEF (%)34.4 (>50%) M-Mode DIMENSIONS Aortic Root3.00 (2.2-3.7cm)Aortic Cusp Exc.1.70 (1.5-2.0cm) Aortic Valve AoV Peak Bzbnsxym329.0cm/Sravani Peak GR.10mmHg Mitral Valve MV E Usjlalqo33.1cm/sMV A Shfkbgjo345.0cm/sE/A ratio0.4 TDI Lateral E' Peak V2.63cm/sMedial E' Peak V2.05cm/sE/Lateral E'24.4 E/Medial E'31.3 Tricuspid Valve TR Peak [id number]/sRAP [id number] Peak Gr.25mmHg [id number] LEFT VENTRICLE The left ventricle is normal size. There is moderate concentric left ventricular hypertrophy. The systolic function is moderately to severely impaired. There is anteroseptal and apical akinesis. RIGHT VENTRICLE The right ventricle is normal size. The right ventricular systolic function is normal. There is a pacemaker lead in the right ventricle. ATRIA The left atrium is moderately dilated. The right atrium size is normal. The interatrial septum is intact with no evidence for an atrial septal defect. AORTIC VALVE The aortic valve is mildly sclerotic. No aortic regurgitation is present. There is no aortic valvular stenosis. MITRAL VALVE Mitral annular calcification is moderate. Mitral regurgitation is mild. TRICUSPID VALVE The tricuspid valve is normal in structure. There is no tricuspid valve regurgitation noted. PULMONIC VALVE The pulmonary valve is normal in structure. GREAT VESSELS The aortic root is normal in size. The IVC is normal in size and collapses >50% with inspiration. PERICARDIAL EFFUSION There is no pleural effusion. There is a small pericardial effusion. <Conclusion> Dilated LA. Normal LV size. Moderate concentric LVH. Moderate to severely reduced LV systolic functio nwith anteroseptal and apical akinesis. Mild MR. Small pericardial effusion present. ICD lead noted in RV.
--- NOTE | 2018-07-06 08:11 | PN ---
DATE: 07/06/2018 SUBJECTIVE: The patient is lying in bed. Cervical collar remains in place. She is uncomfortable due to her immobility. She denies any chest pain or dyspnea. Followup troponin was mildly elevated at 0.13. CURRENT MEDICATIONS: Include bosutinib, carvedilol 6.25 mg twice a day, digoxin 0.125 mg daily, Ecotrin once daily, subcutaneous heparin, Lasix 20 mg daily, Protonix 40 mg daily. OBJECTIVE: GENERAL: She is a very elderly woman who appears comfortable at rest. VITAL SIGNS: Blood pressure is 166/76 with a pulse of 66 and respirations of 14. She is afebrile. HEENT: Cervical collar is in place. CHEST: Few scattered rhonchi. HEART: PMI displaced laterally with soft tones noted. ABDOMEN: Soft, nontender with normoactive bowel sounds. EXTREMITIES: No edema. DIAGNOSTIC DATA: Last troponin 0.13 with a CK of 91. Echocardiogram was reviewed and shows evidence of moderately severe LV systolic dysfunction with normal ejection fraction of 30%. Left atrium is dilated, moderate concentric LVH is present. There is evidence of anteroseptal and apical akinesis with mild mitral regurgitation, small pericardial effusion is present. IMPRESSION: 1. Recent mechanical fall with resultant cervical fracture and needs neurosurgical intervention. 2. Coronary artery disease status post remote myocardial fraction. 3. Moderately severe left ventricular systolic dysfunction with compensated and chronic congestive heart failure, systolic in nature. 4. Status post implantable cardioverter defibrillator implants. RECOMMENDATIONS: Her current regimen will continue for now. Angiotensin receptor darnell will added be given her hypertension and LV dysfunction. Plans are being made for transfer to [facility] for surgical intervention in the next 24-48 hours. She appears optimized from cardiac standpoint to proceed as planned. We will continue to follow and make further recommendations as appropriate. Judson Boykin MD MTDD
[2018-07-06 08:36] LABS: BASO # 0.1 K/mm3 (0.0-2.0); BASO % 0.5 % (0.0-3.0); EOS # 0.1 (0.0-0.7); EOS % 0.5 % (1.5-5.0); GRAN # 14.16 (1.4-6.5); GRAN % 70.4 % (50.0-68.0); HEMOGLOBIN 12.9 g/dL (12.0-16.0); LYMPH # 3.1 (1.2-3.4); LYMPH % 15.3 % (22.0-35.0); MEAN CELL VOLUME 96.8 fl (80.0-105.0); MEAN CORPUSCULAR HEMOGLOBIN 31.7 pg (25.0-35.0); MEAN CORPUSCULAR HGB CONC 32.7 g/dl (31.0-37.0); MEAN PLATELET VOLUME 11.6 fl (7.0-11.0); MONO # 2.7 (0.1-0.6); MONO % 13.3 % (1.0-6.0); RBC 4.07 10^6/uL (3.5-6.1); RED CELL DISTRIBUTION WIDTH 14.2 % (11.5-14.5); WHITE BLOOD COUNT 20.1 10^3/uL (4.5-11.0)
[2018-07-06] MEDS: BOSUTINIB 100 MG PO SCH ×4 (09:16→17:10)
[2018-07-06] MEDS: Digoxin 125 mcg (0.125 mg) Tab PO SCH (09:19)
[2018-07-06 10:41] LABS: ALBUMIN 3.4 g/dL (3.0-4.8); CALCIUM 8.9 mg/dL (8.4-10.5)
[2018-07-06 10:51] LABS: TROPONIN I 0.09 ng/mL
--- NOTE | 2018-07-06 14:44 | CP.PCM.PN ---
<Fabiano Anne - Last Filed: 07/06/18 14:39> Subjective - Date & Time of Evaluation Date of Evaluation: 07/06/18 Time of Evaluation: 08:00 - Subjective Subjective: Fabiano Anne PGY1 Medicine Progress Note for Dr. Yancey Patient was seen and examined at bedside this morning. Cervical collar is in place. No adverse overnight events. She still endorses neck pain. Otherwise, denies cp, sob, abdominal pain, n/v/d, numbness/tingling of ext. A full 12 point ROS was conducted and unremarkable except as stated above. Objective - Vital Signs/Intake and Output Vital Signs (last 24 hours): Temp Pulse Resp BP Pulse Ox 98.3 F 70 20 158/83 H 96 07/06/18 06:00 07/06/18 09:18 07/06/18 06:00 07/06/18 09:19 07/06/18 06:00 - Medications Medications: Current Medications Acetaminophen (Tylenol 325mg Tab) 650 mg PO Q6H PRN PRN Reason: Pain, moderate (4-7) Aspirin (Ecotrin) 81 mg PO DAILY [facility] Last Admin: 07/06/18 09:18 Dose: 81 mg Carvedilol (Coreg) 6.25 mg PO BID [facility] Last Admin: 07/06/18 09:18 Dose: 6.25 mg Digoxin (Digoxin) 0.125 mg PO DAILY [facility] Last Admin: 07/06/18 09:19 Dose: 0.125 mg Furosemide (Lasix) 20 mg PO DAILY [facility] Last Admin: 07/06/18 09:19 Dose: 20 mg Heparin Sodium (Porcine) (Heparin) 5,000 units SC Q12 [facility]; Protocol Last Admin: 07/06/18 09:20 Dose: 5,000 units Losartan Potassium (Cozaar) 50 mg PO DAILY [facility] Last Admin: 07/06/18 09:17 Dose: 50 mg Bosutinib [Bosulif] (100 Mg (Home Med)) 100 mg PO TID [facility] Last Admin: 07/06/18 09:16 Dose: 100 mg Pantoprazole Sodium (Protonix Inj) 40 mg IVP DAILY [facility] Last Admin: 07/06/18 09:15 Dose: 40 mg Tramadol HCl (Ultram) 50 mg PO TID PRN PRN Reason: Pain, severe (8-10) - Labs Labs: 07/06/18 08:27 07/06/18 08:27 PT 11.0 SECONDS (9.4-12.5) 07/05/18 00:52 INR 0.97 07/05/18 00:52 APTT 25.3 Seconds (25.1-36.5) 07/05/18 00:52 - Constitutional Appears: No Acute Distress - Head Exam Head Exam: ATRAUMATIC, NORMOCEPHALIC Additional comments: Cervical collar in place. - Eye Exam Eye Exam: EOMI Pupil Exam: NORMAL ACCOMODATION - Respiratory Exam Respiratory Exam: Clear to Ausculation Bilateral. absent: Rales, Rhonchi, Wheezes - Cardiovascular Exam Cardiovascular Exam: REGULAR RHYTHM, RRR, +S1, +S2 - GI/Abdominal Exam GI & Abdominal Exam: Soft, Normal Bowel Sounds. absent: Tenderness - Extremities Exam Extremities Exam: Full ROM, Normal Capillary Refill, Normal Inspection. absent: Joint Swelling, Pedal Edema - Neurological Exam Neurological Exam: Alert, Awake, Oriented x3 - Psychiatric Exam Psychiatric exam: Normal Affect, Normal Mood - Skin Skin Exam: Dry, Intact, Normal Color, Warm Assessment and Plan - Assessment and Plan (Free Text) Assessment: Patient is an 83 year old female, whose past medical history includes atrial fibrillation with AICD (on ASA), CHF, leukemia (on Bosutinib), DM, gout, macular degeneration, presenting with neck pain after a mechanical fall. Patient found to have a neck fracture of the odontoid process. Neurosurgery is on board. She has been medically cleared for the procedure as per cardiology. Patient's family (daughter) wants the procedure to be done at [facility]. She is pending transfer. Plan: Neck fracture s/p mechanical fall - Displaced oblique fracture of the mid odontoid process - Plan for transfer to [facility] for surgery - CT Cervical spine: Oblique displaced fracture of the base of the odontoid. - Head CT: Age-appropriate cerebellar and cerebral atrophy. Mild chronic microvascular disease. No evidence of acute intracranial pathology. - Neurosurgery is on consult. Recs appreciated - c/w cervical collar - c/w tramadol and tylenol for pain control - c/w neurovascular checks - Aspiration precautions Leukocyotsis with Hx of Leukemia - wbc is 20.1; afebrile and asymptomatic; low suspicion for infection - will need prior records to determine baseline; discuss with daughter - Patient takes Bosutinib for leukemia Elevated troponins and abnormal EKG findings with Hx of VA, AICD, and CHF - As per cardio, patient will continue on cozaar; she is optimized for procedure - Remains asymptomatic for now; no intervention - EKG: Sinus rhythm with occ premature ventricular complexes. T wave abnormality, consider lateral ischemia - elevated troponins x3 - Cardiology on consult. Recs appreciated. SOFÍA with possible CKD Hx - BUN/Cr: 27/1.1 - downtrending - Avoid nephrotoxic agents - Continue to monitor History of Atrial fibrillation - c/w Aspirin 81mg PO QD - c/w Coreg 6.25mg PO BID Hx of reduced ejection fraction heart failure - c/w Lasix 20mg PO QD - c/w Digoxin 0.125 PO QD Hx of diabetes - Hold diabetic medications for now - HbA1C 6.3 Prophylaxis: - GI: Protonix 40mg IVP QD Diet: HHD Dispo: Continue to monitor patient on floor. Patient is pending transfer to [facility] for orthopedic surgery due to neck fracture. Case was discussed and reviewed with Attending Physician, Dr. Yancey <Mariaelena Yancey - Last Filed: 07/06/18 15:26> Objective - Vital Signs/Intake and Output Vital Signs (last 24 hours): Temp Pulse Resp BP Pulse Ox 97.5 F L 60 18 114/58 L 95 07/06/18 14:00 07/06/18 14:00 07/06/18 14:00 07/06/18 14:00 07/06/18 14:00 - Medications Medications: Current Medications Acetaminophen (Tylenol 325mg Tab) 650 mg PO Q6H PRN PRN Reason: Pain, moderate (4-7) Aspirin (Ecotrin) 81 mg PO DAILY [facility] Last Admin: 07/06/18 09:18 Dose: 81 mg Carvedilol (Coreg) 6.25 mg PO BID [facility] Last Admin: 07/06/18 09:18 Dose: 6.25 mg Digoxin (Digoxin) 0.125 mg PO DAILY [facility] Last Admin: 07/06/18 09:19 Dose: 0.125 mg Furosemide (Lasix) 20 mg PO DAILY [facility] Last Admin: 07/06/18 09:19 Dose: 20 mg Heparin Sodium (Porcine) (Heparin) 5,000 units SC Q12 [facility]; Protocol Last Admin: 07/06/18 09:20 Dose: 5,000 units Losartan Potassium (Cozaar) 50 mg PO DAILY [facility] Last Admin: 07/06/18 09:17 Dose: 50 mg Bosutinib [Bosulif] (100 Mg (Home Med)) 100 mg PO TID [facility] Last Admin: 07/06/18 14:29 Dose: 100 mg Pantoprazole Sodium (Protonix Inj) 40 mg IVP DAILY [facility] Last Admin: 07/06/18 09:15 Dose: 40 mg Tramadol HCl (Ultram) 50 mg PO TID PRN PRN Reason: Pain, severe (8-10) - Labs Labs: 07/06/18 08:27 07/06/18 08:27 PT 11.0 SECONDS (9.4-12.5) 07/05/18 00:52 INR 0.97 07/05/18 00:52 APTT 25.3 Seconds (25.1-36.5) 07/05/18 00:52 Attending/Attestation - Attestation I have personally seen and examined this patient.: Yes I have fully participated in the care of the patient.: Yes I have reviewed all pertinent clinical information, including history, physical exam and plan: Yes Notes (Text): 07/06/18 15:18 83 year old female with past medical history of Afib, CHF, s/p AICD, leukemia (on bosutinib), and diabetes who presented with neck pain s/p mechanical fall at home; found to have oblique displaced fracture of the base of the odontoid. Cervical collar is in place. Neurosurgery evaluation was appreciated. Plan is for transfer to [facility] for surgery as per patient/daughter request. Patient had mildly elevated troponin which has trended down. Cardiology is following; patient is medically optimized for procedure per cardiology. Leukocytosis is stable. Possible reactive vs secondary to leukemia. Will ask his pmd/oncology for baseline. Patient is afebrile and nontoxic. CXR was negative. UA is pending. Mariaelena Yancey MD Hospitalist.
[2018-07-07] MEDS ORDERED: Pantoprazole 40 mg EC Tab PO SCH (06:00)
[2018-07-07 07:16] LABS: BASO # 0.08 K/mm3 (0.0-2.0); BASO % 0.3 % (0.0-3.0); GRAN # 18.47 (1.4-6.5); GRAN % 72.6 % (50.0-68.0); HEMOGLOBIN 12.9 g/dL (12.0-16.0); LYMPH # 3.5 (1.2-3.4); LYMPH % 13.6 % (22.0-35.0); MEAN CELL VOLUME 95.1 fl (80.0-105.0); MEAN CORPUSCULAR HEMOGLOBIN 31.7 pg (25.0-35.0); MEAN CORPUSCULAR HGB CONC 33.3 g/dl (31.0-37.0); MEAN PLATELET VOLUME 11.1 fl (7.0-11.0); MONO # 3.4 (0.1-0.6); MONO % 13.5 % (1.0-6.0); PLATELET COUNT 206 10^3/uL (120.0-450.0); RBC 4.07 10^6/uL (3.5-6.1); RED CELL DISTRIBUTION WIDTH 13.9 % (11.5-14.5)
[2018-07-07 07:27] LABS: WHITE BLOOD COUNT 25.5 10^3/uL (4.5-11.0)
[2018-07-07 07:40] LABS: ALB/GLOB RATIO 0.9 (1.1-1.8); ALBUMIN 3.4 g/dL (3.0-4.8)
[2018-07-07 07:47] VITALS: RESP 20; TEMP 97.3; O2SAT 99
[2018-07-07 08:26] LABS: BASOPHIL 1 % (0.0-1.0); LYMPHOCYTE 17 % (22.0-35.0); MONOCYTE 2 % (1.0-6.0); NEUTROPHIL 80 % (50.0-70.0); PLATELET ESTIMATE NORMAL (NORMAL)
[2018-07-07] MEDS: Digoxin 125 mcg (0.125 mg) Tab PO SCH (09:43)
[2018-07-07] MEDS: BOSUTINIB 100 MG PO SCH (09:44)
[2018-07-07 09:45] VITALS: BP 148/79; PULSE 66
--- NOTE | 2018-07-07 14:37 | PN ---
DATE: 07/07/2018 SUBJECTIVE: The patient is seen lying in bed. She remains with a cervical collar in place. She awaits transfer to [place] for neurosurgical intervention. CURRENT MEDICATIONS: Include bosutinib, carvedilol 6.25 mg b.i.d., losartan, digoxin 0.125 mg daily, Ecotrin, subcutaneous heparin, Lasix 20 mg daily, and Protonix. OBJECTIVE: GENERAL: She is a very elderly woman who appears comfortable because of the presence of her cervical collar. VITAL SIGNS: Her blood pressure is 148/80 with a pulse of 66 and respirations of 16. She is afebrile. HEENT: Cervical collar is in place. CHEST: Few scattered rhonchi. HEART: PMI displaced laterally with soft tones noted. ABDOMEN: Soft, nontender, with normoactive bowel sounds. EXTREMITIES: No edema. DIAGNOSTIC DATA: Potassium is 4.3, BUN and creatinine are 35 and 1.3. Glucose 159. Hemoglobin and hematocrit are 12.9 and 38.7 with a white count of 25.5 and platelet count 206,000. IMPRESSION: 1. Recent mechanical fall with resultant cervical neck fracture, felt to be unstable. Need of neurosurgical intervention. 2. Coronary artery disease status post remote myocardial infarction, chronically stable. 3. Mildly severe left ventricular systolic dysfunction with compensated chronic congestive heart failure, systolic in nature. 4. Status post implantable cardioverter defibrillator implant. RECOMMENDATIONS: Her current medications will continue for now. From a cardiac standpoint, she is stable for transfer to [place] as planned. We will be happy to provide ongoing cardiac followup upon return to [place]. Judson Boykin MD
--- NOTE | 2018-07-07 16:03 | CP.PCM.DIS ---
<OmidFabiano - Last Filed: 07/07/18 15:54> Provider - Provider Date of Admission: 07/06/18 13:51 Attending physician: Mariaelena Yancey MD Consults: 07/05/18 01:45 Physician Consult Routine Comment: Consulting Provider: George Goff Consulting Physician: George Goff Reason for Consult: Abnormal EKG 07/05/18 02:26 Physician Consult Routine Comment: Consulting Provider: Robert Mora Consulting Physician: Robert Mora Reason for Consult: Cervical spine fracture s/p fall Time Spent in preparation of Discharge (in minutes): 35 Hospital Course - Lab Results Lab Results: Most Recent Lab Values WBC 25.5 10^3/uL (4.5-11.0) H* D 07/07/18 07:00 RBC 4.07 10^6/uL (3.5-6.1) 07/07/18 07:00 Hgb 12.9 g/dL (12.0-16.0) 07/07/18 07:00 Hct 38.7 % (36.0-48.0) 07/07/18 07:00 MCV 95.1 fl (80.0-105.0) 07/07/18 07:00 MCH 31.7 pg (25.0-35.0) 07/07/18 07:00 MCHC 33.3 g/dl (31.0-37.0) 07/07/18 07:00 RDW 13.9 % (11.5-14.5) 07/07/18 07:00 Plt Count 206 10^3/uL (120.0-450.0) 07/07/18 07:00 MPV 11.1 fl (7.0-11.0) H 07/07/18 07:00 Gran % 72.6 % (50.0-68.0) H 07/07/18 07:00 Lymph % (Auto) 13.6 % (22.0-35.0) L 07/07/18 07:00 [place] % (Auto) 13.5 % (1.0-6.0) H 07/07/18 07:00 Eos % (Auto) 0.0 % (1.5-5.0) L 07/07/18 07:00 Baso % (Auto) 0.3 % (0.0-3.0) 07/07/18 07:00 Gran # 18.47 (1.4-6.5) H 07/07/18 07:00 Lymph # (Auto) 3.5 (1.2-3.4) H 07/07/18 07:00 [place] # (Auto) 3.4 (0.1-0.6) H 07/07/18 07:00 Eos # (Auto) 0.0 (0.0-0.7) 07/07/18 07:00 Baso # (Auto) 0.08 K/mm3 (0.0-2.0) 07/07/18 07:00 Neutrophils % (Manual) 80 % (50.0-70.0) H 07/07/18 07:00 Lymphocytes % (Manual) 17 % (22.0-35.0) L 07/07/18 07:00 Monocytes % (Manual) 2 % (1.0-6.0) 07/07/18 07:00 Basophils % (Manual) 1 % (0.0-1.0) 07/07/18 07:00 Platelet Evaluation Normal (NORMAL) 07/07/18 07:00 PT 11.0 SECONDS (9.4-12.5) 07/05/18 00:52 INR 0.97 07/05/18 00:52 APTT 25.3 Seconds (25.1-36.5) 07/05/18 00:52 Sodium 138 mmol/L (132-148) 07/07/18 07:00 Potassium 4.3 mmol/L (3.6-5.0) 07/07/18 07:00 Chloride 106 mmol/L (98-107) 07/07/18 07:00 Carbon Dioxide 28 mmol/L (21-33) 07/07/18 07:00 Anion Gap 9 (10-20) L 07/07/18 07:00 BUN 35 mg/dL (7-21) H 07/07/18 07:00 Creatinine 1.3 mg/dl (0.7-1.2) H 07/07/18 07:00 Est GFR ( Amer) 47 07/07/18 07:00 Est GFR (Non-Af Amer) 39 07/07/18 07:00 POC Glucose (mg/dL) 177 mg/dL (65-110) H 07/07/18 06:46 Random Glucose 159 mg/dL (70-110) H 07/07/18 07:00 Hemoglobin A1c 6.3 % (4.2-6.5) 07/05/18 05:00 Calcium 9.0 mg/dL (8.4-10.5) 07/07/18 07:00 Total Bilirubin 0.9 mg/dL (0.2-1.3) 07/07/18 07:00 AST 36 U/L (14-36) 07/07/18 07:00 ALT 24 U/L (7-56) 07/07/18 07:00 Alkaline Phosphatase 97 U/L (38-126) 07/07/18 07:00 Lactate Dehydrogenase 502 U/L (333-699) 07/05/18 15:00 Total Creatine Kinase 91 U/L (35-230) 07/05/18 15:00 Troponin I 0.09 ng/mL D 07/06/18 08:27 Total Protein 7.1 g/dL (5.8-8.3) 07/07/18 07:00 Albumin 3.4 g/dL (3.0-4.8) 07/07/18 07:00 Globulin 3.7 gm/dL 07/07/18 07:00 Albumin/Globulin Ratio 0.9 (1.1-1.8) L 07/07/18 07:00 Triglycerides 83 mg/dL (35-160) 07/05/18 11:03 Cholesterol 182 mg/dL (130-200) 07/05/18 11:03 LDL Cholesterol Direct 90 mg/dL (0-129) 07/05/18 11:03 HDL Cholesterol 69 mg/dL (29-60) H 07/05/18 11:03 Digoxin 0.5 ng/mL (0.8-2.0) L 07/05/18 00:52 Blood Type O NEGATIVE 07/05/18 09:11 Antibody Screen Negative 07/05/18 09:11 BBK History Checked Patient has bt 07/05/18 09:11 - Hospital Course Hospital Course: Fabiano Anne, PGY1 Discharge Summary for Dr. Neal Patient is an 83 year old female, whose PMHx includes atrial fibrillation with AICD (on ASA), CHF, [place], leukemia (on Bosutinib), DM, gout, macular degeneration, who presented to the ED brought in by daughter after she tripped and hit the back of her head on a wooden piece of couch approximately 6 hours prior to her arrival. CT Head was negative for bleed. However, patient had neck pain due to mechanical fall. She was found to have a neck fracture on CT cervical spine, which showed displaced oblique fracture of the base of the odontoid. She was immediately placed on cervical collar. Medical team was consulted for management. Neurosurgery also evaluated patient and recommended surgical intervention. As requested by patient and daughter, they would prefer orthopedic surgery for the odontoid fracture at [facility]. Patient was also noted to have elevated troponins during hospital course. Given significant cardiac risk factors and advanced age, cardiology consulted and said patient was optimized for the procedure even though she is high risk surgical candidate. Patient also had an underlying stable leukocytosis that may be attributable to her leukemia. Otherwise, patient is hemodynamically stable and is safe for transfer to [facility] for surgical intervention. Discharge Exam - Head Exam Head Exam: ATRAUMATIC, NORMOCEPHALIC - Eye Exam Eye Exam: Normal appearance Pupil Exam: NORMAL ACCOMODATION - ENT Exam ENT Exam: Mucous Membranes Moist - Neck Exam Additional comments: Cervical collar is in place. - Respiratory Exam Respiratory Exam: Clear to PA & Lateral. absent: Chest Wall Tenderness, Rales, Rhonchi, Wheezes - Cardiovascular Exam Cardiovascular Exam: RRR, +S1, +S2 - GI/Abdominal Exam GI & Abdominal Exam: Normal Bowel Sounds. absent: Distended, Firm, Guarding, Rebound, Rigid - Extremities Exam Extremities exam: full ROM, normal capillary refill, pedal pulses present - Neurological Exam Neurological exam: Alert, Oriented x3 - Psychiatric Exam Psychiatric exam: Normal Affect, Normal Mood - Skin Skin Exam: Dry, Intact, Normal Color, Warm Discharge Plan - Follow Up Plan Condition: GUARDED Disposition: OTHER INSTITUTION Instructions: Pneumonia in Adults, Preventing Falls in the Older Adult, Flu, Adult (DC), Preventing Falls, Neck Fracture (DC) Additional Instructions: Please see your primary care doctor within 3-5 days of discharge from [facility]. Continue medications as prescribed. You were given a disc for your CT scan to bring to [facility]. Referrals: Daren Balderas MD [Family Provider] - <Hope Neal - Last Filed: 07/07/18 17:59> Provider - Provider Date of Admission: 07/06/18 13:51 Attending physician: Mariaelena Yancey MD Consults: 07/05/18 01:45 Physician Consult Routine Comment: Consulting Provider: George Goff Consulting Physician: George Goff Reason for Consult: Abnormal EKG 07/05/18 02:26 Physician Consult Routine Comment: Consulting Provider: Robert Mora Consulting Physician: Robert Mora Reason for Consult: Cervical spine fracture s/p [facility] Course - Lab Results Lab Results: Most Recent Lab Values WBC 25.5 10^3/uL (4.5-11.0) H* D 07/07/18 07:00 RBC 4.07 10^6/uL (3.5-6.1) 07/07/18 07:00 Hgb 12.9 g/dL (12.0-16.0) 07/07/18 07:00 Hct 38.7 % (36.0-48.0) 07/07/18 07:00 MCV 95.1 fl (80.0-105.0) 07/07/18 07:00 MCH 31.7 pg (25.0-35.0) 07/07/18 07:00 MCHC 33.3 g/dl (31.0-37.0) 07/07/18 07:00 RDW 13.9 % (11.5-14.5) 07/07/18 07:00 Plt Count 206 10^3/uL (120.0-450.0) 07/07/18 07:00 MPV 11.1 fl (7.0-11.0) H 07/07/18 07:00 Gran % 72.6 % (50.0-68.0) H 07/07/18 07:00 Lymph % (Auto) 13.6 % (22.0-35.0) L 07/07/18 07:00 [place] % (Auto) 13.5 % (1.0-6.0) H 07/07/18 07:00 Eos % (Auto) 0.0 % (1.5-5.0) L 07/07/18 07:00 Baso % (Auto) 0.3 % (0.0-3.0) 07/07/18 07:00 Gran # 18.47 (1.4-6.5) H 07/07/18 07:00 Lymph # (Auto) 3.5 (1.2-3.4) H 07/07/18 07:00 [place] # (Auto) 3.4 (0.1-0.6) H 07/07/18 07:00 Eos # (Auto) 0.0 (0.0-0.7) 07/07/18 07:00 Baso # (Auto) 0.08 K/mm3 (0.0-2.0) 07/07/18 07:00 Neutrophils % (Manual) 80 % (50.0-70.0) H 07/07/18 07:00 Lymphocytes % (Manual) 17 % (22.0-35.0) L 07/07/18 07:00 Monocytes % (Manual) 2 % (1.0-6.0) 07/07/18 07:00 Basophils % (Manual) 1 % (0.0-1.0) 07/07/18 07:00 Platelet Evaluation Normal (NORMAL) 07/07/18 07:00 PT 11.0 SECONDS (9.4-12.5) 07/05/18 00:52 INR 0.97 07/05/18 00:52 APTT 25.3 Seconds (25.1-36.5) 07/05/18 00:52 Sodium 138 mmol/L (132-148) 07/07/18 07:00 Potassium 4.3 mmol/L (3.6-5.0) 07/07/18 07:00 Chloride 106 mmol/L (98-107) 07/07/18 07:00 Carbon Dioxide 28 mmol/L (21-33) 07/07/18 07:00 Anion Gap 9 (10-20) L 07/07/18 07:00 BUN 35 mg/dL (7-21) H 07/07/18 07:00 Creatinine 1.3 mg/dl (0.7-1.2) H 07/07/18 07:00 Est GFR ( Amer) 47 07/07/18 07:00 Est GFR (Non-Af Amer) 39 07/07/18 07:00 POC Glucose (mg/dL) 177 mg/dL (65-110) H 07/07/18 06:46 Random Glucose 159 mg/dL (70-110) H 07/07/18 07:00 Hemoglobin A1c 6.3 % (4.2-6.5) 07/05/18 05:00 Calcium 9.0 mg/dL (8.4-10.5) 07/07/18 07:00 Total Bilirubin 0.9 mg/dL (0.2-1.3) 07/07/18 07:00 AST 36 U/L (14-36) 07/07/18 07:00 ALT 24 U/L (7-56) 07/07/18 07:00 Alkaline Phosphatase 97 U/L (38-126) 07/07/18 07:00 Lactate Dehydrogenase 502 U/L (333-699) 07/05/18 15:00 Total Creatine Kinase 91 U/L (35-230) 07/05/18 15:00 Troponin I 0.09 ng/mL D 07/06/18 08:27 Total Protein 7.1 g/dL (5.8-8.3) 07/07/18 07:00 Albumin 3.4 g/dL (3.0-4.8) 07/07/18 07:00 Globulin 3.7 gm/dL 07/07/18 07:00 Albumin/Globulin Ratio 0.9 (1.1-1.8) L 07/07/18 07:00 Triglycerides 83 mg/dL (35-160) 07/05/18 11:03 Cholesterol 182 mg/dL (130-200) 07/05/18 11:03 LDL Cholesterol Direct 90 mg/dL (0-129) 07/05/18 11:03 HDL Cholesterol 69 mg/dL (29-60) H 07/05/18 11:03 Digoxin 0.5 ng/mL (0.8-2.0) L 07/05/18 00:52 Blood Type O NEGATIVE 07/05/18 09:11 Antibody Screen Negative 07/05/18 09:11 BBK History Checked Patient has bt 07/05/18 09:11 Attending/Attestation - Attestation I have personally seen and examined this patient.: Yes I have fully participated in the care of the patient.: Yes I have reviewed all pertinent clinical information, including history, physical exam and plan: Yes Notes (Text): 07/07/18 17:58 Medical record note made by the resident after discussion with my direction and input after the patient was personally seen and examined by me. I have reviewed the chart and agree that the record accurately reflects by personal performance of the history, physical exam, data review, and medical decision-making, in the course for the patient. I have also personally directed the plan of care. 83 year old female with past medical history of Afib, CHF, s/p AICD, leukemia (on bosutinib), and diabetes who presented with neck pain s/p mechanical fall at home; found to have oblique displaced fracture of the base of the odontoid. Cervical collar is in place. Neurosurgery evaluation was appreciated. Patient is going to be transfered to [facility] for surgery as per patient/daughter request.
== END 2018-07-07 10:30 | disposition short-term general hospital (02) | DRG 552 ==
LOC: ED 23:09 → ERH 07-05 00:57 → 5RNO 07-05 02:33 → 5RSO 07-05 14:52 → OBSVTOIN 07-06 13:51
PROVIDERS: ADMIT Hospitalist; ATTEND Internal Medicine
DX: S12.110A Anterior displaced Type II dens fracture, initial encounter for closed fracture (principal); I50.22 Chronic systolic (congestive) heart failure; C95.10 Chronic leukemia of unspecified cell type not having achieved remission; N17.9 Acute kidney failure, unspecified; Z95.810 Presence of automatic (implantable) cardiac defibrillator; I11.0 Hypertensive heart disease with heart failure; I48.0 Paroxysmal atrial fibrillation; N18.3 Chronic kidney disease, stage 3 (moderate); R74.8 Abnormal levels of other serum enzymes; I25.10 Atherosclerotic heart disease of native coronary artery without angina pectoris; E11.9 Type 2 diabetes mellitus without complications; H35.30 Unspecified macular degeneration; I25.2 Old myocardial infarction; I49.3 Ventricular premature depolarization; W01.190A Fall on same level from slipping, tripping and stumbling with subsequent striking against furniture, initial encounter; Y92.009 Unspecified place in unspecified non-institutional (private) residence as the place of occurrence of the external cause; Z79.82 Long term (current) use of aspirin; Z82.49 Family history of ischemic heart disease and other diseases of the circulatory system; Z96.651 Presence of right artificial knee joint; G31.9 Degenerative disease of nervous system, unspecified; M10.9 Gout, unspecified; M19.90 Unspecified osteoarthritis, unspecified site

== ENCOUNTER 2018-08-18 15:46 | Inpatient (IN) | payer MEDICARE ==
[2018-08-18 15:54] VITALS: BMI 21.6
--- NOTE | 2018-08-18 16:06 | ED PDOC ---
Arrival/HPI <Jarad Haile DO - Last Filed: 08/18/18 17:07> - General Historian: Family - History of Present Illness Narrative History of Present Illness (Text): 08/18/18 16:03 83 year old female, whose past medical history includes atrial fibrillation with AICD (on ASA), CHF, [place], leukemia (on Bosutinib), DM, gout, macular degeneration presents to the ER for a clogged peg tube. Daughter states that the peg tube was placed 1 month ago for dysphagia at [facility] by IR Dr. Uriostegui. Since then it has been replaced once 2 wks ago since it malfunctioned. Daughter states that the peg tube clogged after she gave her mother given nexium, states that she tried to unclog the tube without success. Daughter also mentions that she noticed yellow d/c around the tube. Otherwise the patient has no pain, fever, nausea or vomiting. tried to flush, not able to flush. She is due for a swallow evaluation soon. PMD: Dr. Balderas Symptom Onset: Gradual Symptom Course: Unchanged Activities at Onset: Light Context: Home <Valentina Felder PA-C - Last Filed: 08/18/18 21:06> - General Chief Complaint: GI Problem Time Seen by Provider: 08/18/18 15:57 Past Medical History - Provider Review Nursing Documentation Reviewed: Yes - Past History Past History: No Previous - Infectious Disease Hx of Infectious Diseases: None - Cardiac Hx Cardiac Arrhythmia: Yes Hx Hypertension: Yes Other/Comment: Defib. AICD - Renal Hx Renal Failure: Yes - Hematological/Oncological Hx Cancer: Yes (Leukemia) Other/Comment: CML - Musculoskeletal/Rheumatological Hx Falls: Yes - Gastrointestinal Other/Comment: + PEG - Psychiatric Hx Substance Use: No - Surgical History Hx Joint Replacement: Yes (right knee replacement) Other/Comment: Left arm metal plate. +PEG - Anesthesia Hx Anesthesia: Yes Hx Anesthesia Reactions: No Hx Malignant Hyperthermia: No <Valentina Felder PA-C - Last Filed: 08/18/18 21:06> Family/Social History - Physician Review Nursing Documentation Reviewed: Yes Family/Social History: No Known Family HX Smoking Status: Never Smoked Hx Alcohol Use: No Hx Substance Use: No Hx Substance Use Treatment: No <Valentina Felder PA-C - Last Filed: 08/18/18 21:06> Allergies/Home Meds <Jarad Haile DO - Last Filed: 08/18/18 17:07> <Valentina Felder PA-C - Last Filed: 08/18/18 21:06> Allergies/Adverse Reactions: Allergies No Known Allergies Allergy (Verified 08/18/18 20:41) Home Medications: Home Meds Medication Instructions Recorded Confirmed Bosutinib [Bosulif] 100 mg PEG Q8 07/04/18 08/18/18 Furosemide [Lasix] 40 mg PEG DAILY 07/04/18 08/18/18 Esomeprazole Magnesium [Nexium] 40 mg PEG DAILY 08/18/18 08/18/18 Levothyroxine [Synthroid] 50 mcg PEG ACB 08/18/18 08/18/18 Review of Systems - Physician Review All systems were reviewed & negative as marked: Yes - Review of Systems Constitutional: absent: Fevers, Other (chills) Respiratory: absent: SOB Cardiovascular: absent: Chest Pain Gastrointestinal: Other (clogged PEG tube). absent: Diarrhea, Nausea, Vomiting Genitourinary Female: absent: Dysuria, Frequency, Hematuria Musculoskeletal: absent: Back Pain, Neck Pain Neurological: absent: Headache, Dizziness <Valentina Felder PA-C - Last Filed: 08/18/18 21:06> Physical Exam Vital Signs Temp Pulse Resp BP Pulse Ox 08/18/18 16:23 62 18 95 08/18/18 15:46 97.6 F 60 18 134/96 H 93 L <Jarad Haile DO - Last Filed: 08/18/18 17:07> Vital Signs Reviewed: Yes Temperature: Afebrile Blood Pressure: Normal Pulse: Regular Respiratory Rate: Normal Appearance: Positive for: Well-Appearing, Non-Toxic, Comfortable, Other (+C collar noted, nasal cannula attached, pt noted to have mild labored breathing) Pain Distress: None Mental Status: Positive for: Alert and Oriented X 3 - Systems Exam Head: Present: Atraumatic, Normocephalic Pupils: Present: PERRL Extroacular Muscles: Present: EOMI Conjunctiva: Present: Normal Mouth: Present: Moist Mucous Membranes Neck: Present: Normal Range of Motion Respiratory/Chest: Present: Clear to Auscultation, Good Air Exchange, Decreased Breath Sounds (+mild decreased BS to b/l lung bases). No: Accessory Muscle Use, Wheezes, Rales, Rhonchi Cardiovascular: Present: Regular Rate and Rhythm, Normal S1, S2. No: Murmurs Abdomen: Present: Ostomy Tubes (to the L mid abdomen, +small amount of thick yellow d/c, no erythema, no edema, no tenderness. ). No: Tenderness, Distention, Peritoneal Signs Back: Present: Normal Inspection Upper Extremity: Present: Normal Inspection. No: Cyanosis, Edema Lower Extremity: Present: Normal Inspection, Edema (2+ pitting edema, +vesicles noted to the dorsal aspect of b/l foot L>R), NORMAL PULSES, Neurovascularly Intact, Capillary Refill < 2 s. No: Tenderness, Temperature Abnormalties Neurological: Present: GCS=15, CN II-XII Intact, Speech Normal Skin: Present: Warm, Dry, Normal Color. No: Rashes Psychiatric: Present: Alert, Oriented x 3, Normal Insight, Normal Concentration <Valentina Felder PA-C - Last Filed: 08/18/18 21:06> Medical Decision Making ED Course and Treatment: 08/18/18 16:05 Previous medical records reviewed. Impression: 83 year old female presents for complaints of clogged PEG tube. Plan: -- Reassess and disposition Prior Visits: Notes and results from previous visits were reviewed. Progress Notes: On further questioning, daughter states that they did follow up with a neurosurgeon at [facility] after the patient's last visit here. The patient was given the option for surgery vs a c collar, as she would have been a poor surgical candidate due to her age and PMH. Daughter adds that the patient was recently at the rehab center of [facility] where the peg tube was placed. 08/18/18 17:30 Case d/w Dr. Dumont, will come in at 1830 to evaluate the patient. Daughter made aware, she is also concerned that the patient is due for a dose of lasix 20 mg, states that she noticed her mother is more SOB since she left the rehab and her pmd had recently increased to dose of her lasix for the next 2-3 days. Labs and IV lasix ordered. 08/18/18 19:00 Labs reviewed : hgb 9.4 / hct 28 (compared to pt's prior labs, pt's hgb is typically trending at 12), Na 128, K 5.4, bun 53 / creat 1.4 / bnp 18,000. CXR ordered. Lab results d/w the daugther, advised of the need for possible admission due to CHF exacerbation. 08/18/18 19:45 Patient seen and evaluated by Dr. Dumont at the bedside, he states that due to the small size of the peg tube, 14 mohawk, the patient will needs to be admitted in order to fit the patient for a larger, possibly 20 mohawk peg tube, as a 14 mohawk will repeatedly get clogged due to its significantly small size. They patient and the daughter agrees with this plan. CXR : +significant b/l pleural effusion, unable to see cardiac silhouette, this is new compared to her last CXR in Jun 2018. EKG ordered. XR results d/w the daughter. Case d/w territory sales manager medical and with Dr. Giraldo, agrees with plan to admit for CHF exacerbation and peg tube malfunction, under the hospitalist service. He recommends no further treatment by the ER at this time, he will come and evaluate the patient. EKG : SR at 60 bpm, +LAD, +T wave inversions in inferolateral leads, compared to prior EKG the T wave inversions in the inferior leads are new. Troponin ordered. <Valentina Felder PA-C - Last Filed: 08/18/18 21:06> - PA / DIAGNOSTIC MEDICAL SONOGRAPHER / Resident Statement MARVIN has reviewed & agrees with the documentation as recorded. - Scribe Statement The provider has reviewed the documentation as recorded by the Skip Coppola Provider Scribe Attestation: All medical record entries made by the Skip were at my direction and personally dictated by me. I have reviewed the chart and agree that the record accurately reflects my personal performance of the history, physical exam, medical decision making, and the department course for this patient. I have also personally directed, reviewed, and agree with the discharge instructions and disposition. <Valentina Felder PA-C - Last Filed: 08/18/18 21:06> Disposition/Present on Arrival <Jarad Haile DO - Last Filed: 08/18/18 17:07> - Present on Arrival Any Indicators Present on Arrival: No History of DVT/PE: No History of Uncontrolled Diabetes: No Urinary Catheter: No History of Decub. Ulcer: No History Surgical Site Infection Following: None - Disposition Have Diagnosis and Disposition been Completed?: Yes Disposition Time: 20:00 Patient Plan: Admission (to [facility]) <Valentina Felder PA-C - Last Filed: 08/18/18 21:06> - Disposition Diagnosis: CHF exacerbation, PEG tube malfunction Disposition: HOSPITALIZED Condition: FAIR
[2018-08-18 18:03] LABS: BASO # 0.01 K/mm3 (0.0-2.0); BASO % 0.1 % (0.0-3.0); HEMOGLOBIN 9.4 g/dL (12.0-16.0); LYMPH # 1.1 (1.2-3.4); LYMPH % 10.5 % (22.0-35.0); MEAN CORPUSCULAR HEMOGLOBIN 31.5 pg (25.0-35.0); MEAN CORPUSCULAR HGB CONC 33.2 g/dl (31.0-37.0); MEAN PLATELET VOLUME 11.3 fl (7.0-11.0); MONO # 1.1 (0.1-0.6); MONO % 10.3 % (1.0-6.0); RBC 2.98 10^6/uL (3.5-6.1); RED CELL DISTRIBUTION WIDTH 20.4 % (11.5-14.5); WHITE BLOOD COUNT 10.5 10^3/uL (4.5-11.0)
[2018-08-18 18:14] LABS: ALB/GLOB RATIO 0.8 (1.1-1.8); ALBUMIN 3.3 g/dL (3.0-4.8); CALCIUM 8.5 mg/dL (8.4-10.5)
--- NOTE | 2018-08-18 20:37 | CP.PCM.PN ---
Subjective - Date & Time of Evaluation Date of Evaluation: 08/18/18 Time of Evaluation: 20:31 - Subjective Subjective: PGY1 Medicine History and Physical Exam Note for Dr. Giraldo CC: clogged peg tube This is an 83-year-old F with PMH prior [place], paroxysmal a-fib, left ventricular dysfunction, s/p ICD implant (on ASA), CHF, DM, macular degeneration, and chronic leukemia (on Bosutinib, who presents to the ED for clogged peg tube. Per Patient's Daughter (Criselda), the Patient had a PEG tube placed about 1 month ago secondary to dysphagia (done at [facility] by IR Dr. Uriostegui). The PEG tube was replaced 2 weeks ago due to a malfunction, and today, the Daughter states that the peg tube became clogged after administering nexium. The Daughter reports that she attempted to unclog the tube, but was without success. Daughter also mentions that she noticed yellow discharge around the tube. Otherwise the patient has no chest pain, shortness of breath, abdominal pain, fever, chills, nausea or vomiting, and/or diarrhea. Of note, while in the ED, Dr. Dumont attempted to flush the PEG, but was not able to flush. PMHx: Atrial fibrillation with AICD (only on ASA), [place], CHF, leukemia (on Bosutinib), DM, gout, macular degeneration PSHx: R Knee replacement, left arm metal plate Social Hx: denies tobacco, or, and drug use. 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 Family Hx: Brother of [place] age 54, another brother in his 20's for cardiac reasons. Allergies: NKDA Meds: Per AUG PMD: Dr. Balderas Plumbing Service Technician: Dr. Goff Heme/onc: Dr. Moore POC: Criselda (daughter): [phone] Objective - Vital Signs/Intake and Output Vital Signs (last 24 hours): Temp Pulse Resp BP Pulse Ox 97.6 F 60 18 112/68 96 08/18/18 19:09 08/18/18 19:09 08/18/18 19:09 08/18/18 19:09 08/18/18 19:09 - Labs Labs: 08/18/18 17:54 08/18/18 17:54 - Constitutional Appears: Non-toxic, No Acute Distress, Cachectic, Chronically Ill - Head Exam Head Exam: ATRAUMATIC, NORMAL INSPECTION, NORMOCEPHALIC - Eye Exam Eye Exam: EOMI, Normal appearance Pupil Exam: NORMAL ACCOMODATION - ENT Exam ENT Exam: Mucous Membranes Dry - Neck Exam Neck Exam: Full ROM. absent: Thyromegaly - Respiratory Exam Respiratory Exam: Decreased Breath Sounds, Rales (mild bilateral ), NORMAL BREATHING PATTERN. absent: Accessory Muscle Use, Chest Wall Tenderness, Prolo nged Expiratory Phase, Respiratory Distress - Cardiovascular Exam Cardiovascular Exam: +S1, +S2 Additional comments: SR at 60 bpm - GI/Abdominal Exam GI & Abdominal Exam: Soft, Normal Bowel Sounds. absent: Distended, Firm, Guarding, Tenderness - Extremities Exam Extremities Exam: absent: Calf Tenderness Additional comments: bulla with clear-filled fluid on dorsum of left foot (2.5 inches in diameter). Nontender. Nonerythematous. - Back Exam Back Exam: NORMAL INSPECTION. absent: CVA tenderness (L), CVA tenderness (R) - Neurological Exam Neurological Exam: Alert, Awake, Oriented x3 - Psychiatric Exam Psychiatric exam: Depressed - Skin Skin Exam: Dry, Intact, Pallor, Warm Assessment and Plan - Assessment and Plan (Free Text) Assessment: Clogged Peg Tube - GI Consulted (Dr. Dumont); recommendations appreciated - Bilateral Pleural Effusion in the setting of reduced ejection fraction heart failure (HFrEF) - Lasix 40mg PEG daily - Digoxin 0.125 PO QD - Digoxin level 0.5 (low) - Most recent EF % from 07/05/18 SOFÍA with Possible underlying CKD - BUN/Cr: 53/1.4 - Avoid nephrotoxic agents - Continue to monitor Mild Transaminitis - AST=53; ALT=18 - Avoid hepatotoxic agents - Monitor CMP daily Normocytic Anemia - Hgb drop 9.4 from 12.9 about 1 month ago - F/U iron studies - Monitor H/H Daily History of Atrial fibrillation - Continue home Aspirin 81mg PO QD - Continue coreg 6.25mg PO BID Hx of diabetes - Hold diabetic medications for now - ISS - Hypoglycemic protocol - Accu check ACHS - HbA1C 6.3 (from about 1 month ago) Prophylaxis: - GI: Protonix 40mg IVP QD
[2018-08-18] MEDS ORDERED: Phytonadione 10 mg/ml Inj (Adult) SC ONE (21:40)
[2018-08-18] MEDS ORDERED: Albumin Human 25% (12.5 gm/50 ml) IV ONE (21:41)
[2018-08-18] MEDS ORDERED: Influenza Vaccine 60 mcg/0.5 mL SYR (4YR UP) IM ONE (22:23)
[2018-08-18] MEDS ORDERED: Pneumococcal 23-Valent Vaccine IM ONE (22:23)
--- NOTE | 2018-08-18 22:39 | CP.PCM.HP ---
<Dilma Samuels - Last Filed: 08/18/18 22:48> History of Present Illness - History of Present Illness History of Present Illness: PGY1 Medicine History and Physical Exam Note for Dr. Giraldo CC: clogged peg tube This is an 83-year-old F with PMH prior [place], paroxysmal a-fib, left ventricular dysfunction, s/p ICD implant (on ASA), CHF, DM, macular degeneration, and chronic leukemia (on Bosutinib, who presents to the ED for clogged peg tube. Per Patient's Daughter (Criselda), the Patient had a PEG tube placed about 1 month ago secondary to dysphagia (done at [facility] by IR Dr. Uriostegui). The PEG tube was replaced 2 weeks ago due to a malfunction, and today, the Daughter states that the peg tube became clogged after administering nexium. The Daughter reports that she attempted to unclog the tube, but was without success. Daughter also mentions that she noticed yellow discharge around the tube. Otherwise the patient has no chest pain, shortness of breath, abdominal pain, fever, chills, nausea or vomiting, and/or diarrhea. Of note, while in the ED, Dr. Dumont attempted to flush the PEG, but was not able to flush. PMHx: Atrial fibrillation with AICD (only on ASA), [place], CHF, leukemia (on Bosutinib), DM, gout, macular degeneration PSHx: R Knee replacement, left arm metal plate Social Hx: denies tobacco, or, and drug use. 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 Family Hx: Brother of [place] age 54, another brother in his 20's for cardiac reasons. Allergies: NKDA Meds: Per AUG PMD: Dr. Balderas Layout Operator: Dr. Goff Heme/onc: Dr. Moore POC: Criselda (daughter): [phone] Present on Admission - Present on Admission Any Indicators Present on Admission: No History of DVT/PE: No History of Uncontrolled Diabetes: No Urinary Catheter: No Decubitus Ulcer Present: No Review of Systems - Review of Systems All systems: reviewed and no additional remarkable complaints except (as per HPI) Past Patient History - Infectious Disease Hx of Infectious Diseases: None - Past Social History Smoking Status: Never Smoked - CARDIAC Hx Cardiac Disorders: Yes (CAD) Hx Cardia Arrhythmia: Yes (AFIB) Hx Circulatory Problems: Yes Hx Congestive Heart Failure: Yes Other/Comment: AICD -LEFT CHEST WALL. - PULMONARY Hx Respiratory Disorders: No - NEUROLOGICAL Hx Neurological Disorder: Yes - HEENT Hx HEENT Problems: Yes Hx Deafness: Yes (BILATERAL HEARING AIDES) Hx Macular Degeneration: Yes - RENAL Hx Chronic Kidney Disease: No - ENDOCRINE/METABOLIC Hx Endocrine Disorders: Yes (DM) - HEMATOLOGICAL/ONCOLOGICAL Hx Blood Disorders: Yes Hx Anemia: Yes Hx Cancer: Yes (CML) - INTEGUMENTARY Hx Dermatological Problems: Yes Other/Comment: 08-18-18 IASD-TO SACRAL AREA AND IN BETWEEN BUTTOCKS. PER DAUGHTER PT HAS BEEN HAVING WATERY STOOL SINCE HAVING THE GLUCERNA FEEDING. 08-18-18 BILATERAL LE EDEMA PITTING +3. LEFT TOP OF FOOT HAS A QUARTER SIZED BLISTER FLUID FILLED. - MUSCULOSKELETAL/RHEUMATOLOGICAL Hx Musculoskeletal Disorders: Yes (RIGHT KNEE REPLACEMENT,METAL PLATE L ARM.) Hx Falls: Yes (C1-C2 FRACTURE WITH NECK COLLAR.) Hx Fractures: Yes (C1-C2 FRACTURE WITH NECK COLLAR.,FX L FINGER) Hx Gout: Yes Hx Unsteady Gait: Yes (WALKER) - GASTROINTESTINAL Hx Gastrointestinal Disorders: Yes HX Swallowing Problems: Yes - GENITOURINARY/GYNECOLOGICAL Hx Genitourinary Disorders: No - PSYCHIATRIC Hx Anxiety: No Hx Substance Use: No - SURGICAL HISTORY Hx Surgeries: Yes (L ARM METAL PLATE,PEG RIGHT KNEE REPLACEMENT) - ANESTHESIA Hx Anesthesia: Yes Hx Anesthesia Reactions: No Hx Malignant Hyperthermia: No Meds Allergies/Adverse Reactions: Allergies Allergy/AdvReac Type Severity Reaction Status Date / Time No Known Allergies Allergy Verified 08/18/18 20:41 Physical Exam - Additional Findings Additional findings: - Constitutional Appears: Non-toxic, No Acute Distress, Cachectic, Chronically Ill - Head Exam Head Exam: ATRAUMATIC, NORMAL INSPECTION, NORMOCEPHALIC - Eye Exam Eye Exam: EOMI, Normal appearance Pupil Exam: NORMAL ACCOMODATION - ENT Exam ENT Exam: Mucous Membranes Dry - Neck Exam Neck Exam: Full ROM. absent: Thyromegaly - Respiratory Exam Respiratory Exam: Decreased Breath Sounds, Rales (mild bilateral ), NORMAL BREATHING PATTERN. absent: Accessory Muscle Use, Chest Wall Tenderness, Prolonged Expiratory Phase, Respiratory Distress - Cardiovascular Exam Cardiovascular Exam: +S1, +S2 Additional comments: SR at 60 bpm - GI/Abdominal Exam GI & Abdominal Exam: Soft, Normal Bowel Sounds. absent: Distended, Firm, Guarding, Tenderness - Extremities Exam Extremities Exam: absent: Calf Tenderness Additional comments: bulla with clear-filled fluid on dorsum of left foot (2.5 inches in diameter). Nontender. Nonerythematous. - Back Exam Back Exam: NORMAL INSPECTION. absent: CVA tenderness (L), CVA tenderness (R) - Neurological Exam Neurological Exam: Alert, Awake, Oriented x3 - Psychiatric Exam Psychiatric exam: Depressed - Skin Skin Exam: Dry, Intact, Pallor, Warm Results - Vital Signs Recent Vital Signs: Last Vital Signs Temp 97.8 F 08/18/18 21:01 Pulse 61 08/18/18 21:01 Resp 18 08/18/18 21:55 BP 113/51 L 08/18/18 21:01 Pulse Ox 95 08/18/18 21:01 - Labs Result Diagrams: 08/18/18 17:54 08/18/18 17:54 Labs: Laboratory Results - last 24 hr 08/18/18 08/18/18 08/18/18 17:54 17:54 17:54 WBC 10.5 D RBC 2.98 L Hgb 9.4 L D Hct 28.3 L MCV 95.0 MCH 31.5 MCHC 33.2 RDW 20.4 H Plt Count 275 MPV 11.3 H Neut % (Auto) 79.1 H Lymph % (Auto) 10.5 L [place] % (Auto) 10.3 H Eos % (Auto) 0.0 L Baso % (Auto) 0.1 Lymph # (Auto) 1.1 L [place] # (Auto) 1.1 H Eos # (Auto) 0.0 Baso # (Auto) 0.01 Absolute Neuts (auto) 8.32 H Sodium 128 L Potassium 5.4 H Chloride 94 L Carbon Dioxide 27 Anion Gap 13 BUN 53 H Creatinine 1.4 H Est GFR ( Amer) 43 Est GFR (Non-Af Amer) 36 Random Glucose 140 H Calcium 8.5 Phosphorus 3.5 Magnesium 2.5 H Total Bilirubin 0.6 AST 53 H D ALT 18 Alkaline Phosphatase 256 H D Troponin I 0.02 D NT-Pro-B Natriuret Pep 49362 H Total Protein 7.4 Albumin 3.3 Globulin 4.2 Albumin/Globulin Ratio 0.8 L Assessment & Plan - Assessment and Plan (Free Text) Assessment: This is an 83-year-old F with PMH prior [place], paroxysmal a-fib, left ventricular dysfunction, s/p ICD implant (on ASA), CHF, DM, macular degeneration, and chronic leukemia (on Bosutinib, who presents to the ED for clogged peg tube. Clogged Peg Tube - GI Consulted (Dr. Dumont); recommendations appreciated - IR Consulted (Dr. Bryan); recommendations appreciated - F/U PT/PTT in AM - Hold meds for tonight Bilateral Pleural Effusion in the setting of Acute on chronic CHF exacerbation; reduced ejection fraction heart failure (HFrEF) - BNP 98062 - Lasix 20mg given in ED - Hold home Digoxin 0.125 PO QD - Digoxin level 0.5 (low) - Most Recent EF % from 07/05/18 - CXR : Positive for significant b/l pleural effusion, unable to see cardiac silhouette, this is new compared to her last CXR in Jun 2018. - EKG: SR at 60 bpm, +LAD, +T wave inversions in inferolateral leads, compared to prior EKG the T wave inversions in the inferior leads are new. - Troponin negative x1 - F/U troponin Q6H x2 - Cardiology Dr. Boykin consulted; recommendations appreciated SOFÍA Likely Secondary to Dehydration; with Possible underlying CKD - Hyponatremia 128 - BUN/Cr: 53/1.4 - Albumin 25% IV x1 dose - Avoid Nephrotoxic agents - CMP in AM Hyperkalemia - K+ = 5.4 - Kayexalate RC ordered x1 - Monitor CMP Mild Transaminitis - AST= 53; ALT= 18 - Avoid hepatotoxic agents - Monitor CMP daily Normocytic Anemia - Hgb drop 9.4 from 12.9 about 1 month ago - F/U iron studies - F/U peripheral smear - F/U reticulocyte count - Monitor CBC Daily History of Atrial fibrillation - Hold home meds: Aspirin 81mg PO QD; coreg 6.25mg PO BID Hx of diabetes - Hold diabetic medications for now - ISS (low) - Hypoglycemic protocol - Accu check ACHS - HbA1C 6.3 (from about 1 month ago) Prophylaxis: - GI: Protonix 40mg IVP BID - DVT: hold SCDs due to LE edema b/l. Elevate LE B/L Patient seen and case discussed with Dr. Kristal Samuels PGY1 <Cha Giraldo - Last Filed: 08/19/18 06:51> Results - Vital Signs Recent Vital Signs: Last Vital Signs Temp 97.8 F 08/18/18 21:01 Pulse 61 08/19/18 06:00 Resp 18 08/18/18 21:55 BP 113/51 L 08/18/18 21:01 Pulse Ox 95 08/18/18 21:01 - Labs Result Diagrams: 08/18/18 17:54 08/18/18 17:54 Labs: Laboratory Results - last 24 hr 08/18/18 08/18/18 08/18/18 17:54 17:54 17:54 WBC 10.5 D RBC 2.98 L Hgb 9.4 L D Hct 28.3 L MCV 95.0 MCH 31.5 MCHC 33.2 RDW 20.4 H Plt Count 275 MPV 11.3 H Neut % (Auto) 79.1 H Lymph % (Auto) 10.5 L [place] % (Auto) 10.3 H Eos % (Auto) 0.0 L Baso % (Auto) 0.1 Lymph # (Auto) 1.1 L [place] # (Auto) 1.1 H Eos # (Auto) 0.0 Baso # (Auto) 0.01 Absolute Neuts (auto) 8.32 H Sodium 128 L Potassium 5.4 H Chloride 94 L Carbon Dioxide 27 Anion Gap 13 BUN 53 H Creatinine 1.4 H Est GFR ( Amer) 43 Est GFR (Non-Af Amer) 36 Random Glucose 140 H Calcium 8.5 Phosphorus 3.5 Magnesium 2.5 H Total Bilirubin 0.6 AST 53 H D ALT 18 Alkaline Phosphatase 256 H D Troponin I 0.02 D NT-Pro-B Natriuret Pep 04254 H Total Protein 7.4 Albumin 3.3 Globulin 4.2 Albumin/Globulin Ratio 0.8 L 08/19/18 00:27 WBC RBC Hgb Hct MCV MCH MCHC RDW Plt Count MPV Neut % (Auto) Lymph % (Auto) [place] % (Auto) Eos % (Auto) Baso % (Auto) Lymph # (Auto) [place] # (Auto) Eos # (Auto) Baso # (Auto) Absolute Neuts (auto) Sodium Potassium Chloride Carbon Dioxide Anion Gap BUN Creatinine Est GFR ( Amer) Est GFR (Non-Af Amer) Random Glucose Calcium Phosphorus Magnesium Total Bilirubin AST ALT Alkaline Phosphatase Troponin I 0.02 NT-Pro-B Natriuret Pep Total Protein Albumin Globulin Albumin/Globulin Ratio Attending/Attestation - Attestation I have personally seen and examined this patient.: Yes I have fully participated in the care of the patient.: Yes I have reviewed all pertinent clinical information: Yes Notes (Text): 08/19/18 06:50 seen and examined with resident. Cardiology to assess continuation of lasix as pt. appears dry. GI/IR for PEG tube replacement.
[2018-08-18] MEDS ORDERED: Dextrose 50% SYRINGE Inj (50 ml) IV PRN (22:52)
[2018-08-19 07:03] LABS: BASO # 0.03 K/mm3 (0.0-2.0); BASO % 0.4 % (0.0-3.0); EOS # 0.1 (0.0-0.7); EOS % 0.7 % (1.5-5.0); HEMOGLOBIN 8.7 g/dL (12.0-16.0); INR 1.21; LYMPH # 1.4 (1.2-3.4); MEAN CELL VOLUME 96.8 fl (80.0-105.0); MEAN CORPUSCULAR HEMOGLOBIN 31.1 pg (25.0-35.0); MEAN CORPUSCULAR HGB CONC 32.1 g/dl (31.0-37.0); MONO # 1.4 (0.1-0.6); MONO % 19.8 % (1.0-6.0); PARTIAL THROMBOPLASTIN TIME 26.1 Seconds (26.9-38.3); PLATELET COUNT 238 10^3/uL (120.0-450.0); PROTHROMBIN TIME 13.7 SECONDS (9.4-12.5); RED CELL DISTRIBUTION WIDTH 20.3 % (11.5-14.5); WHITE BLOOD COUNT 7.1 10^3/uL (4.5-11.0)
[2018-08-19 07:11] LABS: TROPONIN I 0.03 ng/mL
[2018-08-19 07:12] LABS: IRON 39 ug/dL (45-180)
[2018-08-19 07:18] LABS: ALB/GLOB RATIO 0.8 (1.1-1.8); CALCIUM 8.5 mg/dL (8.4-10.5)
[2018-08-19 07:21] LABS: % IRON SATURATION 13 % (20-55); TOTAL IRON BINDING CAPACITY 297 ug/dL (265-497)
--- NOTE | 2018-08-19 07:50 | CP.PCM.PN ---
<Ibrahima Carlton - Last Filed: 08/19/18 12:58> Subjective - Date & Time of Evaluation Date of Evaluation: 08/19/18 Time of Evaluation: 07:47 - Subjective Subjective: Medicine Progress Note for Dr. Neal 83F seen and evaluated at bedside this morning. No acute events overnight. No complaints this morning. Patient NPO, will be going for PEG adjustment with GI team today. Denies fever, chills, n/v/d, SOB, CP, or urinary symptoms. Objective - Vital Signs/Intake and Output Vital Signs (last 24 hours): Temp Pulse Resp BP Pulse Ox 97.8 F 61 18 113/51 L 95 08/18/18 21:01 08/19/18 06:00 08/18/18 21:55 08/18/18 21:01 08/18/18 21:01 - Medications Medications: Current Medications Dextrose (Dextrose 50% Inj) 0 ml IV STAT PRN; Protocol PRN Reason: Hypoglycemia Protocol Dextrose (Dextrose 5% In Water 1000 Ml) 1,000 mls @ 0 mls/hr IV .Q0M PRN; Protocol PRN Reason: Hypoglycemia Protocol Insulin Human Regular (Humulin R) 0 units SC ACHS FANG; Protocol Pantoprazole Sodium (Protonix Inj) 40 mg IVP Q12 FANG Last Admin: 08/18/18 22:13 Dose: 40 mg - Labs Labs: 08/19/18 06:20 08/19/18 06:20 PT 13.7 SECONDS (9.4-12.5) H 08/19/18 06:20 INR 1.21 08/19/18 06:20 APTT 26.1 Seconds (26.9-38.3) L 08/19/18 06:20 - Constitutional Appears: Well, Non-toxic, No Acute Distress - Head Exam Head Exam: ATRAUMATIC, NORMAL INSPECTION, NORMOCEPHALIC - Eye Exam Eye Exam: EOMI - ENT Exam ENT Exam: Mucous Membranes Dry - Respiratory Exam Respiratory Exam: NORMAL BREATHING PATTERN. absent: Accessory Muscle Use, Rales, Rhonchi, Wheezes, Respiratory Distress - Cardiovascular Exam Cardiovascular Exam: REGULAR RHYTHM. absent: Tachycardia - GI/Abdominal Exam GI & Abdominal Exam: Soft, Normal Bowel Sounds. absent: Tenderness Additional comments: PEG tube site clean, dry, no leakage noted, nonerythematous, nonpurulent - Neurological Exam Neurological Exam: Alert, Awake, Oriented x3 - Psychiatric Exam Psychiatric exam: Normal Affect, Normal Mood - Skin Skin Exam: Dry, Intact, Normal Color, Warm Assessment and Plan - Assessment and Plan (Free Text) Assessment: This is an 83F, with PMH prior [place], paroxysmal a-fib, left ventricular dysfunction s/p ICD implant (on ASA), CHF, DM, macular degeneration, gout, and chronic leukemia (on Bosutinib), admitted for PEG tube malfunction. Scheduled for PEG adjustment with GI team today. Patient to remain NPO. Plan: PEG tube malfunction - Pending IR evaluation - NPO diet - Home meds on hold - Swallow evaluation pending Bilateral Pleural Effusion in the setting of Acute on Chronic CHF exacerbation; reduced ejection fraction heart failure (HFrEF) - BNP [id number] - Lasix 40mg BID, per cardiology - Most Recent EF 34% from 07/05/18 - CXR : Positive for significant b/l pleural effusion - EKG: NSR at 60 bpm, +LAD, new +T wave inversions in inferolateral leads - Troponin negative x2 - Daily weights - Strict Is and Os - Physical therapy evaluation and treatment SOFÍA Likely Secondary to Dehydration - BUN/Cr: 44/1.4 - Avoid Nephrotoxic agents - Continue to monitor Hyperkalemia, resolved - K+ = 4.3 today - Continue to monitor Mild Transaminitis, resolved - AST= 36; ALT= 24 - Avoid hepatotoxic agents - Continue to monitor Normocytic Anemia - Monitor H/H - Low iron levels - Will replete once PEG functioning - Continue to monitor History of Atrial fibrillation - Per daughter, patient is no longer on anticoagulation - Patient has previously documented Afib, converted to NSR - No indication for anticoagulation at this present time - NSR on EKG Hx of diabetes - Hold home diabetic medications for now - ISS (low) - Hypoglycemic protocol - Accu check ACHS - Most recent HbA1C 6.3 Prophylaxis: - GI: Protonix 40mg IVP BID - DVT: hold SCDs due to LE edema b/l. Elevate LE B/L. Patient plan discussed with Dr. Val Carlton PGY1 <Hope Neal - Last Filed: 08/19/18 14:38> Objective - Vital Signs/Intake and Output Vital Signs (last 24 hours): Temp Pulse Resp BP Pulse Ox 97.3 F L 64 20 149/57 L 96 08/19/18 08:31 08/19/18 08:31 08/19/18 08:31 08/19/18 10:01 08/19/18 08:31 - Medications Medications: Current Medications Dextrose (Dextrose 50% Inj) 0 ml IV STAT PRN; Protocol PRN Reason: Hypoglycemia Protocol Furosemide (Lasix) 40 mg IV BID FANG Last Admin: 08/19/18 10:01 Dose: 40 mg Dextrose (Dextrose 5% In Water 1000 Ml) 1,000 mls @ 0 mls/hr IV .Q0M PRN; Protocol PRN Reason: Hypoglycemia Protocol Insulin Human Regular (Humulin R) 0 units SC ACHS FANG; Protocol Last Admin: 08/19/18 09:51 Dose: Not Given Pantoprazole Sodium (Protonix Inj) 40 mg IVP Q12 FANG Last Admin: 08/19/18 09:57 Dose: 40 mg Potassium Chloride (Potassium Chloride Oral Soln) 20 meq PEG BID FANG - Labs Labs: 08/19/18 06:20 08/19/18 06:20 PT 13.7 SECONDS (9.4-12.5) H 08/19/18 06:20 INR 1.21 08/19/18 06:20 APTT 26.1 Seconds (26.9-38.3) L 08/19/18 06:20 Attending/Attestation - Attestation I have personally seen and examined this patient.: Yes I have fully participated in the care of the patient.: Yes I have reviewed all pertinent clinical information, including history, physical exam and plan: Yes Notes (Text): 08/19/18 14:31 Patient was seen and examined with medical imaging technician. 83F, with PMH prior [place], paroxysmal a-fib not on anticoagulation due to H/O GI bleeding,CHF with systolic dysfunction .SP AICD ,, DM, macular degeneration, gout, and chronic leukemia (on Bosutinib), admitted for PEG tube malfunction.She is also found to have acute on chronic systolic CHF exacerbation and hyponatremia due to CHF exacerbation. Continue IV lasix, will follow up BUN/Creatinin and electrolyte. Patient is going to be evaluated by IR for PEG tube replacement. Management plan was discussed in detail with patient and daughter who is at bed side. Education was provided 08/19/18 14:35
--- NOTE | 2018-08-19 08:53 | RAD ---
Date of service: 08/18/2018 HISTORY: SOB COMPARISON: 07/05/2018 FINDINGS: LUNGS: No active pulmonary disease. PLEURA: Large bilateral pleural effusions. These were not present on the previous study CARDIOVASCULAR: Aortic calcification Mild cardiomegaly OSSEOUS STRUCTURES: No significant abnormalities. VISUALIZED UPPER ABDOMEN: Normal. OTHER FINDINGS: Dual lead pacemaker IMPRESSION: Large bilateral pleural effusions
--- NOTE | 2018-08-19 09:37 | CP.PCM.CON ---
History of Present Illness - History of Present Illness History of Present Illness: GI consult note for Dr. Joanie Payton, PGY-2 Pt seen/examined at bedside 83F w/PMH sig for dysphagia s/p PEG tube placement consulted for clogged PEG tube. PEG tube was placed approximately 1 mo prior to evaluation due to dysp hagai and aspiration risk. PEG was placd at [facility] by IR (Dr. Uriostegui). PEG has already been repl PMH: hx MA, pAfib, LV dysfunction, CHF, DM, macular degeneration, chronic leukemia, dysphagia PSH: AICD, PEG placement (Jul 2017) All: NKDA SH: Denies tobacco, ETOH or illicit drug use FH: Non contributory PMD: [place] Past Patient History - Infectious Disease Hx of Infectious Diseases: None - Past Social History Smoking Status: Never Smoked - CARDIAC Hx Cardiac Disorders: Yes (CAD) Hx Cardia Arrhythmia: Yes (AFIB) Hx Circulatory Problems: Yes Hx Congestive Heart Failure: Yes Other/Comment: AICD -LEFT CHEST WALL. - PULMONARY Hx Respiratory Disorders: No - NEUROLOGICAL Hx Neurological Disorder: Yes - HEENT Hx HEENT Problems: Yes Hx Deafness: Yes (BILATERAL HEARING AIDES) Hx Macular Degeneration: Yes - RENAL Hx Chronic Kidney Disease: No - ENDOCRINE/METABOLIC Hx Endocrine Disorders: Yes (DM) - HEMATOLOGICAL/ONCOLOGICAL Hx Blood Disorders: Yes Hx Anemia: Yes Hx Cancer: Yes (CML) - INTEGUMENTARY Hx Dermatological Problems: Yes Other/Comment: 08-18-18 IASD-TO SACRAL AREA AND IN BETWEEN BUTTOCKS. PER DAUGHTER PT HAS BEEN HAVING WATERY STOOL SINCE HAVING THE GLUCERNA FEEDING. 08-18-18 BILATERAL LE EDEMA PITTING +3. LEFT TOP OF FOOT HAS A QUARTER SIZED BLISTER FLUID FILLED. - MUSCULOSKELETAL/RHEUMATOLOGICAL Hx Musculoskeletal Disorders: Yes (RIGHT KNEE REPLACEMENT,METAL PLATE L ARM.) Hx Falls: Yes (C1-C2 FRACTURE WITH NECK COLLAR.) Hx Fractures: Yes (C1-C2 FRACTURE WITH NECK COLLAR.,FX L FINGER) Hx Gout: Yes Hx Unsteady Gait: Yes (WALKER) - GASTROINTESTINAL Hx Gastrointestinal Disorders: Yes HX Swallowing Problems: Yes - GENITOURINARY/GYNECOLOGICAL Hx Genitourinary Disorders: No - PSYCHIATRIC Hx Anxiety: No Hx Substance Use: No - SURGICAL HISTORY Hx Surgeries: Yes (L ARM METAL PLATE,PEG RIGHT KNEE REPLACEMENT) - ANESTHESIA Hx Anesthesia: Yes Hx Anesthesia Reactions: No Hx Malignant Hyperthermia: No Meds Allergies/Adverse Reactions: Allergies Allergy/AdvReac Type Severity Reaction Status Date / Time No Known Allergies Allergy Verified 08/18/18 20:41 - Medications Medications: Current Medications Dextrose (Dextrose 50% Inj) 0 ml IV STAT PRN; Protocol PRN Reason: Hypoglycemia Protocol Furosemide (Lasix) 40 mg IV BID FANG Dextrose (Dextrose 5% In Water 1000 Ml) 1,000 mls @ 0 mls/hr IV .Q0M PRN; Protocol PRN Reason: Hypoglycemia Protocol Insulin Human Regular (Humulin R) 0 units SC ACHS FANG; Protocol Pantoprazole Sodium (Protonix Inj) 40 mg IVP Q12 FANG Last Admin: 08/18/18 22:13 Dose: 40 mg Potassium Chloride (Potassium Chloride Oral Soln) 20 meq PEG BID FANG Results - Vital Signs Recent Vital Signs: Last Vital Signs Temp 97.3 F L 08/19/18 08:31 Pulse 64 08/19/18 08:31 Resp 20 08/19/18 08:31 BP 149/57 L 08/19/18 08:31 Pulse Ox 96 08/19/18 08:31 - Labs Result Diagrams: 08/19/18 06:20 08/19/18 06:20 Labs: Laboratory Results - last 24 hr 08/18/18 08/18/18 08/18/18 17:54 17:54 17:54 WBC 10.5 D RBC 2.98 L Hgb 9.4 L D Hct 28.3 L MCV 95.0 MCH 31.5 MCHC 33.2 RDW 20.4 H Plt Count 275 MPV 11.3 H Neut % (Auto) 79.1 H Lymph % (Auto) 10.5 L [place] % (Auto) 10.3 H Eos % (Auto) 0.0 L Baso % (Auto) 0.1 Lymph # (Auto) 1.1 L [place] # (Auto) 1.1 H Eos # (Auto) 0.0 Baso # (Auto) 0.01 Absolute Neuts (auto) 8.32 H Retic Count PT INR APTT Sodium 128 L Potassium 5.4 H Chloride 94 L Carbon Dioxide 27 Anion Gap 13 BUN 53 H Creatinine 1.4 H Est GFR ( Amer) 43 Est GFR (Non-Af Amer) 36 POC Glucose (mg/dL) Random Glucose 140 H Calcium 8.5 Phosphorus 3.5 Magnesium 2.5 H Iron TIBC % Saturation Total Bilirubin 0.6 AST 53 H D ALT 18 Alkaline Phosphatase 256 H D Troponin I 0.02 D NT-Pro-B Natriuret Pep 54248 H Total Protein 7.4 Albumin 3.3 Globulin 4.2 Albumin/Globulin Ratio 0.8 L 08/19/18 08/19/18 08/19/18 00:27 06:20 06:20 WBC RBC Hgb Hct MCV MCH MCHC RDW Plt Count MPV Neut % (Auto) Lymph % (Auto) [place] % (Auto) Eos % (Auto) Baso % (Auto) Lymph # (Auto) [place] # (Auto) Eos # (Auto) Baso # (Auto) Absolute Neuts (auto) Retic Count PT INR APTT Sodium 131 L Potassium 4.3 Chloride 97 L Carbon Dioxide 28 Anion Gap 11 BUN 44 H Creatinine 1.4 H Est GFR ( Amer) 43 Est GFR (Non-Af Amer) 36 POC Glucose (mg/dL) Random Glucose 92 Calcium 8.5 Phosphorus Magnesium Iron 39 L TIBC 297 % Saturation 13 L Total Bilirubin 0.8 AST 36 D ALT 24 Alkaline Phosphatase 161 H D Troponin I 0.02 0.03 D NT-Pro-B Natriuret Pep Total Protein 6.8 Albumin 3.0 Globulin 3.8 Albumin/Globulin Ratio 0.8 L 08/19/18 08/19/18 08/19/18 06:20 06:20 06:20 WBC 7.1 D RBC 2.80 L Hgb 8.7 L Hct 27.1 L MCV 96.8 MCH 31.1 MCHC 32.1 RDW 20.3 H Plt Count 238 MPV 11.0 Neut % (Auto) 59.1 Lymph % (Auto) 20.0 L [place] % (Auto) 19.8 H Eos % (Auto) 0.7 L Baso % (Auto) 0.4 Lymph # (Auto) 1.4 [place] # (Auto) 1.4 H Eos # (Auto) 0.1 Baso # (Auto) 0.03 Absolute Neuts (auto) 4.20 Retic Count 3.96 H PT 13.7 H INR 1.21 APTT 26.1 L Sodium Potassium Chloride Carbon Dioxide Anion Gap BUN Creatinine Est GFR ( Amer) Est GFR (Non-Af Amer) POC Glucose (mg/dL) Random Glucose Calcium Phosphorus Magnesium Iron TIBC % Saturation Total Bilirubin AST ALT Alkaline Phosphatase Troponin I NT-Pro-B Natriuret Pep Total Protein Albumin Globulin Albumin/Globulin Ratio 08/19/18 07:47 WBC RBC Hgb Hct MCV MCH MCHC RDW Plt Count MPV Neut % (Auto) Lymph % (Auto) [place] % (Auto) Eos % (Auto) Baso % (Auto) Lymph # (Auto) [place] # (Auto) Eos # (Auto) Baso # (Auto) Absolute Neuts (auto) Retic Count PT INR APTT Sodium Potassium Chloride Carbon Dioxide Anion Gap BUN Creatinine Est GFR ( Amer) Est GFR (Non-Af Amer) POC Glucose (mg/dL) 97 Random Glucose Calcium Phosphorus Magnesium Iron TIBC % Saturation Total Bilirubin AST ALT Alkaline Phosphatase Troponin I NT-Pro-B Natriuret Pep Total Protein Albumin Globulin Albumin/Globulin Ratio
[2018-08-19] MEDS: Insulin Regular 1 UNITS/0.01 ML ML SC SCH ×4 (09:51→21:57)
[2018-08-19] MEDS ORDERED: Potassium Chloride 20 mEq/15 ml LIQ UD PEG SCH (10:00)
--- NOTE | 2018-08-19 10:43 | CARD ---
APPROVED REPORT Date of service: 08/18/2018 EKG Measurement Heart [id number] <Conclusion> Normal sinus rhythm Left axis deviation Anteroseptal infarct, age undetermined T wave abnormality, consider inferolateral ischemia Abnormal ECG
--- NOTE | 2018-08-19 12:28 | RAD ---
Date of service: 08/19/2018 HISTORY: KUB only. No erect. Check g tube COMPARISON: None available. FINDINGS: BOWEL: Normal. No obstruction. No free air. There is a balloon tipped gastrostomy tube on the left side. There is no contrast injected into the tube to confirm intraluminal position. BONES: Normal. OTHER FINDINGS: None. IMPRESSION: There is a balloon tipped gastrostomy tube on the left side. There is no contrast injected into the tube to confirm intraluminal position.
[2018-08-19 12:40] LABS: FERRITIN 74.4 ng/mL
--- NOTE | 2018-08-19 13:09 | CON ---
DATE: 08/19/2018 REQUESTING PHYSICIAN: Dr. Neal. REASON FOR CONSULTATION: Dyspnea, edema. HISTORY: This is an 83-year-old woman well-known to me with a history of ischemic cardiomyopathy, prior myocardial infarction, and paroxysmal atrial fibrillation status post ICD implant, who was recently admitted with a cervical spine fracture. She was transferred to [place] for possible surgical intervention. She was felt to be high risk and conservative management was advised for now with prolonged cervical immobilization with a collar. She was discharged home just recently from a rehabilitation center. A gastrostomy tube had been placed for feeding and due to swallowing difficulties. She also developed significant peripheral edema and pleural effusions and dyspnea while there. She was seen in the office yesterday and advised intensification of diuretic therapy and GI evaluation for management of her clotted gastrostomy tube. She was seen in the emergency room and advised admission and was scheduled for an exchange of her gastrostomy tube later today. A chest x-ray confirmed bilateral pleural effusions. She was given IV Lasix as well. PAST MEDICAL HISTORY: Her past history is notable for the problems mentioned above. She has a non-insulin dependent diabetes mellitus, severe arthritis, and history of gout. She has undergone prior right knee replacement as well as left arm surgery. She has a history of chronic leukemia as well. MEDICATIONS: Her current medications include Protonix, bosutinib, and Synthroid. ALLERGIES: NONE. SOCIAL HISTORY: She does not smoke or drink. FAMILY HISTORY: Both parents are from age-related illness. REVIEW OF SYSTEMS: Ten-point review of systems is mainly notable for problems mentioned above. PHYSICAL EXAMINATION: GENERAL: She is a chronically ill-appearing very elderly woman. VITAL SIGNS: Her blood pressure is 150/60 with a pulse of 64 and sinus, respirations are 14. She is afebrile. HEENT: Temporal wasting noted. NECK: No JVD noted. CHEST: Diminished breath sounds at the bases with few scattered rhonchi. HEART: PMI displaced laterally with soft tones present. ABDOMEN: Soft. Bowel sounds present. A gastrostomy tube is in place. EXTREMITIES: 1+ lower extremity edema with some blistering on her dorsal aspect of her left foot. PSYCHIATRIC: Normal mood and affect. NEUROLOGIC: Currently in a cervical collar, but alert and oriented x3 and gross motor or sensory deficits notable. LABORATORY DATA: Initial sodium is 120, repeat is 131. Initial potassium 5.4, repeat is 4.3. BUN and creatinine 44 and 1.4. White count 7.1, hemoglobin and hematocrit 8.7 and 27.1 with platelet count of 238,000. BNP is 18,000. Troponin is negative. Chest x-ray reveals enlarged cardiac silhouette, an ICD system is in place. Bilateral pleural effusions are noted. Electrocardiogram reveals sinus rhythm with left axis deviation, prior anteroseptal wall myocardial infarction is present and inferolateral ST-T changes noted. IMPRESSION: 1. Decompensated congestive heart failure, [id number], likely secondary to the recent volume overload, hospitalized elsewhere. 2. Chronic ischemic cardiomyopathy. 3. Coronary artery disease status post remote myocardial infarction. 4. Clotted gastrostomy tube. 5. Recent cervical fracture, being managed conservatively. 6. Rest of problems as noted. RECOMMENDATIONS: 1. From a cardiac standpoint, diuresis is planned. A TSH will be checked as recently her Synthroid dose was apparently reduced elsewhere. 2. She is stable to proceed with change of her gastrostomy tube as planned. We will continue to follow and make further recommendations as appropriate. Judson Boykin MD [facility]
--- NOTE | 2018-08-19 19:36 | CP.PCM.PN ---
Subjective - Date & Time of Evaluation Date of Evaluation: 08/19/18 Time of Evaluation: 19:33 - Subjective Subjective: Paged by nurse for heart rate in the 140, a.fib with RVR. Per nurse the episode lasted for less then a minute but occurred multiple times. Patient has history of a. fib, currently not on rate control or anticoagulation. Patient was exam ined at bedside, no acute distress. No chest pain, sob, palpitations. Objective - Vital Signs/Intake and Output Vital Signs (last 24 hours): Temp Pulse Resp BP Pulse Ox 97.3 F L 64 20 148/75 96 08/19/18 08:31 08/19/18 08:31 08/19/18 08:31 08/19/18 18:20 08/19/18 08:31 - Medications Medications: Current Medications Dextrose (Dextrose 50% Inj) 0 ml IV STAT PRN; Protocol PRN Reason: Hypoglycemia Protocol Furosemide (Lasix) 40 mg IV BID [facility] Last Admin: 08/19/18 18:20 Dose: 40 mg Dextrose (Dextrose 5% In Water 1000 Ml) 1,000 mls @ 0 mls/hr IV .Q0M PRN; Neptali col PRN Reason: Hypoglycemia Protocol Insulin Human Regular (Humulin R) 0 units SC ACHS FANG; Protocol Last Admin: 08/19/18 18:16 Dose: Not Given Pantoprazole Sodium (Protonix Inj) 40 mg IVP Q12 [facility] Last Admin: 08/19/18 09:57 Dose: 40 mg Potassium Chloride (Potassium Chloride Oral Soln) 20 meq PEG BID FANG - Labs Labs: 08/19/18 06:20 08/19/18 06:20 PT 13.7 SECONDS (9.4-12.5) H 08/19/18 06:20 INR 1.21 08/19/18 06:20 APTT 26.1 Seconds (26.9-38.3) L 08/19/18 06:20 - Constitutional Appears: No Acute Distress - Respiratory Exam Respiratory Exam: Clear to Ausculation Bilateral, NORMAL BREATHING PATTERN. absent: Rhonchi, Wheezes, Respiratory Distress - Cardiovascular Exam Cardiovascular Exam: REGULAR RHYTHM. absent: Bradycardia, Tachycardia, Murmur Assessment and Plan - Assessment and Plan (Free Text) Assessment: 83 Female, with PMH prior [place], paroxysmal a-fib, left ventricular dysfunction s/p ICD implant (on ASA), CHF, DM, macular degeneration, gout, and chronic leukemia (on Bosutinib), admitted for PEG tube malfunction, found to be in a fib with heart in the 140s. Patient returned to sinus after without intervention or medication. EKG was done, sinus rhythm with pvcs. Cardiology, Dr. Oliver already consulted. Patient is not on anticoagulation due to GI bleed. Repeat Trop was unchanged. mag and phos were within normal range. Will continue to monitor, currently on remote tele.
[2018-08-19 20:43] LABS: TROPONIN I 0.03 ng/mL
--- NOTE | 2018-08-19 20:53 | CARD ---
APPROVED REPORT Date of service: 08/19/2018 EKG Measurement Heart [id number] <Conclusion> Sinus rhythm with premature supraventricular complexes Left axis deviation Possible Anteroseptal infarct, age undetermined NDSTT abnormalities Abnormal ECG
--- NOTE | 2018-08-19 23:19 | CP.PCM.PCO ---
Addendum Addendum: 08/19/18 23:17 83 Female, with PMH prior [place], paroxysmal a-fib, left ventricular dysfunction s/p ICD implant (on ASA), CHF, DM, macular degeneration, gout, and chronic leukemia (on Bosutinib), admitted for PEG tube malfunction, paged by nurse when patient was found to be in a fib with heart in the 140s. Per nurse the episode lasted for less then a minute but occurred multiple times. Patient has history of a. fib, currently not on anticoagulation due to history of GI bleed. Patient was examined at bedside, no acute distress. No chest pain, sob, palpitations. Patient returned to sinus after without intervention or medication. EKG was done, sinus rhythm with pvcs. Cardiology, Dr. Oliver already consulted. Repeat Trop was unchanged. mag and phos were within normal range. Will continue to monitor on remote tele. 08/20/18 05:11 Nurse paged because patient had elevated heart rate in the 140s, sustained for greater then 15 minutes. EKG was done, showed a fib. Patient BP was 122/71. She is resting comfortably, without symptoms. She was given 5 mg lopressor IVP
--- NOTE | 2018-08-20 01:10 | CON ---
DATE: 08/19/2018 REASON FOR CONSULTATION: PEG tube malfunction. HISTORY OF PRESENT ILLNESS: This is an 83-year-old patient with past medical history of coronary artery disease, paroxysmal atrial fibrillation, left ventricular dysfunction, status post ICD placement, diabetes mellitus, macular degeneration, CLL, was on PEG tube feeding who was brought to the emergency room following clotted PEG tube and unable to flush it. The patient did have dysphagia, had a sustained fracture of the cervical spine and is having hard collar, being consult to be managed and the PEG tube was placed by interventional radiologist. The patient had some issues with the PEG tube, which was again adjusted. PAST MEDICAL HISTORY: Significant as above. PAST SURGICAL HISTORY: Significant for right knee replacement and left arm metal plate. SOCIAL HISTORY: Denies smoking or alcohol. REVIEW OF SYSTEMS: Positive as above limited. The patient has a hard collar. No chest pain. No palpitation. No abdominal pain. PHYSICAL EXAMINATION: HEENT: Atraumatic. Anicteric. NECK: Supple. The patient has a hard collar. HEART: S1 and S2 heard. LUNGS: Bilateral air entry present. ABDOMEN: Soft. There is no mass palpable and no tenderness. There is a 14-[place] Lucian balloon type PEG tube was present. EXTREMITIES: No cyanosis. No clubbing. NEUROLOGICAL: Alert. Difficulty in swallowing. The patient was evaluated by the speech therapist before. The patient has a hard collar now. LABORATORY DATA: Hemoglobin 8.7, hematocrit 27.1, WBC 7.1, and platelets 238. Alkaline phosphatase 151. IMPRESSION: An 83-year-old patient has a cervical vertebral fracture and had hard collar and dysphagia. She has a 14-[place] Lucian PEG tube radiologically placed, has blocked. I explain other comorbidities include atrial fibrillation, coronary artery disease, congestive heart failure, and diabetes mellitus. RECOMMENDATIONS: The patient try to do the flushing the patient has clotted PEG tube could not be flushed. We do not have a 14-[place] Lucian available in [place] now, being ordered meanwhile. The patient requested for IR-guided catheter placement now. I did discuss with the patient's family at length earlier. Thank you very much for allowing me to participate in the care of the patient. Lake Dumont MD [facility] # [phone]
[2018-08-20] MEDS ORDERED: Metoprolol 1 mg/ml Inj IVP ONE ×2 (05:10→06:04)
[2018-08-20 06:49] LABS: BASO # 0.02 K/mm3 (0.0-2.0); BASO % 0.2 % (0.0-3.0); EOS % 0.1 % (1.5-5.0); HEMOGLOBIN 9.6 g/dL (12.0-16.0); LYMPH # 1.4 (1.2-3.4); LYMPH % 16.3 % (22.0-35.0); MEAN CELL VOLUME 98.1 fl (80.0-105.0); MEAN CORPUSCULAR HEMOGLOBIN 30.9 pg (25.0-35.0); MEAN CORPUSCULAR HGB CONC 31.5 g/dl (31.0-37.0); MEAN PLATELET VOLUME 10.6 fl (7.0-11.0); MONO # 1.4 (0.1-0.6); MONO % 16.3 % (1.0-6.0); RBC 3.11 10^6/uL (3.5-6.1); RED CELL DISTRIBUTION WIDTH 20.3 % (11.5-14.5); WHITE BLOOD COUNT 8.5 10^3/uL (4.5-11.0)
[2018-08-20 06:51] LABS: CALCIUM 8.9 mg/dL (8.4-10.5)
[2018-08-20] MEDS ORDERED: Digoxin 500 mcg/2ml (0.5 mg/2ml) Inj IVP ONE (06:59)
[2018-08-20] MEDS: Insulin Regular 1 UNITS/0.01 ML ML SC SCH ×3 (07:59→16:49)
[2018-08-20] MEDS ORDERED: Lidocaine PF 2% (5 ml) Inj (For Cardiac Arrhy) ONE (08:56)
[2018-08-20] MEDS ORDERED: Iodixanol 320 MG/ML 200 ML BOTTLE IV ONE (08:56)
[2018-08-20 10:28] VITALS: PULSE 138
--- NOTE | 2018-08-20 11:03 | CP.PCM.PN ---
<Jack Santillan - Last Filed: 08/20/18 18:24> Subjective - Date & Time of Evaluation Date of Evaluation: 08/20/18 Time of Evaluation: 11:00 - Subjective Subjective: Patient is having G-tube replaced by interventional radiology today. Patient had A. fib with RVR and is being treated by the spare fixer. Objective - Vital Signs/Intake and Output Vital Signs (last 24 hours): Temp Pulse Resp BP Pulse Ox 98.5 F 102 H 20 109/68 97 08/20/18 10:29 08/20/18 10:29 08/20/18 10:29 08/20/18 10:29 08/20/18 10:29 Intake and Output: 08/20/18 08/20/18 06:59 18:59 Intake Total 0 Output Total 800 Balance -800 - Medications Medications: Current Medications Dextrose (Dextrose 50% Inj) 0 ml IV STAT PRN; Protocol PRN Reason: Hypoglycemia Protocol Furosemide (Lasix) 40 mg PEG DAILY [facility] Dextrose (Dextrose 5% In Water 1000 Ml) 1,000 mls @ 0 mls/hr IV .Q0M PRN; Protocol PRN Reason: Hypoglycemia Protocol Insulin Human Regular (Humulin R) 0 units SC ACHS [facility]; Protocol Last Admin: 08/20/18 07:59 Dose: Not Given Metoprolol Tartrate (Lopressor) 25 mg GT BRKDIN [facility] Pantoprazole Sodium (Protonix Inj) 40 mg IVP Q12 [facility] Last Admin: 08/19/18 21:58 Dose: 40 mg Potassium Chloride (Potassium Chloride Oral Soln) 20 meq PEG BID [facility] - Labs Labs: 08/20/18 06:25 08/20/18 06:25 PT 13.7 SECONDS (9.4-12.5) H 08/19/18 06:20 INR 1.21 08/19/18 06:20 APTT 26.1 Seconds (26.9-38.3) L 08/19/18 06:20 Assessment and Plan - Assessment and Plan (Free Text) Assessment: #Malfunctioning G-tube #Recent odontoid fracture #Atrial fibrillation with RVR #CHF #Leukemia on bosutinib #Diabetes #Gout PLAN: -G-tube exchange per IR, 14 Libyan <[place] V - Last Filed: 08/20/18 22:34> Objective - Vital Signs/Intake and Output Vital Signs (last 24 hours): Temp Pulse Resp BP Pulse Ox 98.2 F 95 H 19 113/61 100 08/20/18 16:00 08/20/18 18:00 08/20/18 16:00 08/20/18 16:00 08/20/18 16:00 - Medications Medications: Current Medications Dextrose (Dextrose 50% Inj) 0 ml IV STAT PRN; Protocol PRN Reason: Hypoglycemia Protocol Furosemide (Lasix) 40 mg PEG DAILY [facility] Home Med (Home Med) 1 unit PEG TID [facility] Last Admin: 08/20/18 17:42 Dose: 1 unit Dextrose (Dextrose 5% In Water 1000 Ml) 1,000 mls @ 0 mls/hr IV .Q0M PRN; Protocol PRN Reason: Hypoglycemia Protocol Insulin Human Regular (Humulin R) 0 units SC ACHS [facility]; Protocol Last Admin: 08/20/18 16:49 Dose: Not Given Levothyroxine Sodium (Synthroid) 25 mcg PEG 0600 [facility] Metoprolol Tartrate (Lopressor) 25 mg GT BRKDIN [facility] Last Admin: 08/20/18 17:41 Dose: 25 mg Pantoprazole Sodium (Protonix Susp) 40 mg PEG 0600 [facility] Potassium Chloride (Potassium Chloride Oral Soln) 20 meq PEG BID [facility] - Labs Labs: 08/20/18 06:25 08/20/18 06:25 PT 13.7 SECONDS (9.4-12.5) H 08/19/18 06:20 INR 1.21 08/19/18 06:20 APTT 26.1 Seconds (26.9-38.3) L 08/19/18 06:20 Attending/Attestation - Attestation I have personally seen and examined this patient.: Yes I have fully participated in the care of the patient.: Yes I have reviewed all pertinent clinical information, including history, physical exam and plan: Yes Notes (Text): This is an addendum to GI progress report dictated by the GI Fellow. The patient was seen and examined earlier. Medical records, lab studies, imagings were reviewed. Last 24 hours events reviewed. Agreed with the above treatment plan as outlined in GI Fellow 's notes with the addition of the following Status post a change of 14 Libyan G-tube to 18 Libyan by IR following dilations Restart feeding Discussed with the patient's family who were at the bedside 08/20/18 22:33
--- NOTE | 2018-08-20 11:34 | CP.PCM.PN ---
<Ibrahima Carlton - Last Filed: 08/20/18 14:38> Subjective - Date & Time of Evaluation Date of Evaluation: 08/20/18 Time of Evaluation: 09:00 - Subjective Subjective: Medicine Progress Note for Dr. Neal 83F seen and evaluated at bedside this morning. Patient noted to be in Afib overnight, given 2.5mg Lopressor x2 and additional 0.5mg IVP Digoxin in AM. Patient continues to be tachycardic. Patient had replacement of PEG with 18fr tube which can be used later this evening for nutrition and medications. Denies f/c, n/v/d, SOB, CP, or urinary symptoms. Objective - Vital Signs/Intake and Output Vital Signs (last 24 hours): Temp Pulse Resp BP Pulse Ox 98.5 F 102 H 20 109/68 97 08/20/18 10:29 08/20/18 10:29 08/20/18 10:29 08/20/18 10:29 08/20/18 10:29 Intake and Output: 08/20/18 08/20/18 06:59 18:59 Intake Total 0 Output Total 800 Balance -800 - Medications Medications: Current Medications Dextrose (Dextrose 50% Inj) 0 ml IV STAT PRN; Protocol PRN Reason: Hypoglycemia Protocol Furosemide (Lasix) 40 mg PEG DAILY [facility] Dextrose (Dextrose 5% In Water 1000 Ml) 1,000 mls @ 0 mls/hr IV .Q0M PRN; Protocol PRN Reason: Hypoglycemia Protocol Insulin Human Regular (Humulin R) 0 units SC ACHS [facility]; Protocol Last Admin: 08/20/18 07:59 Dose: Not Given Metoprolol Tartrate (Lopressor) 25 mg GT BRKDIN [facility] Pantoprazole Sodium (Protonix Inj) 40 mg IVP Q12 [facility] Last Admin: 08/19/18 21:58 Dose: 40 mg Potassium Chloride (Potassium Chloride Oral Soln) 20 meq PEG BID [facility] - Labs Labs: 08/20/18 06:25 08/20/18 06:25 PT 13.7 SECONDS (9.4-12.5) H 08/19/18 06:20 INR 1.21 08/19/18 06:20 APTT 26.1 Seconds (26.9-38.3) L 08/19/18 06:20 - Constitutional Appears: Well, Non-toxic, No Acute Distress - Head Exam Head Exam: ATRAUMATIC, NORMAL INSPECTION, NORMOCEPHALIC - Eye Exam Eye Exam: EOMI - ENT Exam ENT Exam: Mucous Membranes Dry - Respiratory Exam Respiratory Exam: NORMAL BREATHING PATTERN. absent: Respiratory Distress - Cardiovascular Exam Cardiovascular Exam: Tachycardia, Irregular Rhythm - GI/Abdominal Exam GI & Abdominal Exam: Soft, Normal Bowel Sounds. 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 Plan: PEG Tube Malfunction - PEG tube replaced by IR today. Patient tolerated procedure - PEG can be used for nutrition and PO medications later today - Resume tube feeds this evening - Monitor PEG site for drainage/leakage. Dressing changes PRN Hx of Atrial Fibrillation - Episodes of Afib w/ RVR overnight - EKG NSR w/ PVCs - Repeat Trop negative x1 - Given 2.5mg Lopressor x2, 0.5mg Digoxin - Started on Metoprolol 25mg BID per cardio - No anticoagulation secondary to hx of GI bleed and fall risk - Continue to monitor on telemetry Acute on Chronic CHF Exacerbation - Continue Lasix 40mg BID - Wean off nasal cannula - Daily weights - Strict I&Os - Physical therapy recommends TCU SOFÍA - Monitor daily labs - BUN/Cr: 38/1.5 today - Avoid nephrotoxic medications Normocytic Anemia - Monitor H/H - Replete through PEG once able to use PEG Hx of Diabetes - ISS, low - Hypoglycemic protocol - Accuchecks Q2H - Most recent Hgb A1c:6.3 PPX: - GI: Protonix 40mg Q12 - DVT: Leg elevation, hold SCDs Dispo: Pending TCU evaluation Patient plan discussed with Dr. Val Carlton PGY1 <Hope Neal - Last Filed: 08/22/18 15:25> Objective - Vital Signs/Intake and Output Vital Signs (last 24 hours): Temp Pulse Resp BP Pulse Ox 97.6 F 60 18 133/61 95 03/08/19 06:00 08/22/18 14:00 08/22/18 06:00 08/22/18 10:33 08/22/18 06:00 Intake and Output: 08/22/18 08/22/18 06:59 18:59 Intake Total 0 1500 Output Total 200 Balance -200 1500 - Labs Labs: 08/21/18 06:00 08/21/18 06:00 PT 13.7 SECONDS (9.4-12.5) H 08/19/18 06:20 INR 1.21 08/19/18 06:20 APTT 26.1 Seconds (26.9-38.3) L 08/19/18 06:20 Attending/Attestation - Attestation I have personally seen and examined this patient.: Yes I have fully participated in the care of the patient.: Yes I have reviewed all pertinent clinical information, including history, physical exam and plan: Yes Notes (Text): 08/22/18 15:25 Medical record note made by the resident after discussion with my direction and input after the patient was personally seen and examined by me. I have reviewed the chart and agree that the record accurately reflects by personal performance of the history, physical exam, data review, and medical decision-making, in the course for the patient. I have also personally directed the plan of care.
--- NOTE | 2018-08-20 12:46 | PN ---
DATE: 08/20/2018 SUBJECTIVE: The patient seen lying in bed on 3R. She developed rapid atrial fibrillation earlier today. She was given one dose of IV digoxin. She is scheduled for gastrostomy tube change today. The tube remains clogged. MEDICATIONS: Her current medications include Lasix 40 mg IV b.i.d., potassium supplement and Protonix. PHYSICAL EXAMINATION GENERAL: She is a chronically ill appearing very elderly woman. VITAL SIGNS: Blood pressure is 110/70 with a pulse of 100 in atrial fibrillation, respirations are 14. She is afebrile. HEENT AND NECK: Cervical collar is in place. CHEST: Diminished breath sounds at the bases. HEART: Rhythm is irregularly irregular with systolic murmurs at the left sternal border. ABDOMEN: Soft, nontender, normoactive bowel sounds. EXTREMITIES: Trace ankle edema. DIAGNOSTIC DATA: Three sets of cardiac enzymes are negative. White count 8.5, hemoglobin and hematocrit 9.6 and 30.5 with platelet count of 256,000. Potassium 3.9, BUN and creatinine 36 and 1.5. IMPRESSION 1. Decompensated congestive heart failure, acute on chronic combined systolic and diastolic secondary to recent excess volume effusion. 2. Clotted gastrostomy tube for change today. 3. Recent cervical neck fracture, being managed conservatively. 4. Coronary artery disease status post remote myocardial infarction. RECOMMENDATIONS: Oral metoprolol will be resumed via her gastrostomy tube once this has been replaced. Lasix will be switched to gastrostomy administration as well. Her TSH is somewhat elevated at 6.56. Her Synthroid dose has been apparently reduced recently and this may need to be adjusted again. Increase activity and physical therapy is advised. We will be happy to follow along as needed. Judson Boykin MD
--- NOTE | 2018-08-20 13:57 | CARD ---
APPROVED REPORT Date of service: 08/20/2018 EKG Measurement Heart [id number] <Conclusion> Atrial fibrillation with rapid ventricular response Left axis deviation Anterolateral infarct, age undetermined Abnormal ECG
--- NOTE | 2018-08-20 14:32 | VASCULAR ---
Date of service: 08/20/2018 PROCEDURE: Gastrostomy tube change HISTORY: Recent gastrostomy tube placement in PA C. Clogged tube. Needs replacement. COMPARISON: TECHNIQUE: The relative risks and indications of the procedure explained the patient's daughter and consent obtained. Patient placed supine on the arteriogram table and the gastrostomy tube prepped and draped usual sterile fashion. Conscious sedation monitoring were provided throughout the procedure by a nurse The skin and soft tissues of the tube were anesthetized 1 percent xylocaine. The tube is clogged and will not inject. A 0.035 glidewire was coiled within the stomach. The balloon was deflated in the old gastrostomy tube removed. A 5 Sinhala Verafinenstein catheter was advanced over the guidewire. Contrast was injected which confirmed placement within the stomach. Exchange was made for a 0.035 support wire A new 18 Sinhala gastrostomy tube was advanced into the stomach. The balloon was inflated to 7 cc with very dilute contrast. The balloon was retracted against the anterior abdominal wall. Contrast was injected to confirm placement. The patient tolerated the procedure FINDINGS: IMPRESSION: Gastrostomy tube change as described above. An 18 Sinhala gastrostomy tube was placed
--- NOTE | 2018-08-20 16:12 | CP.PCM.APN ---
Subjective - Date & Time of Evaluation Date of Evaluation: 08/20/18 Objective - Vital Signs/Intake and Output Vital Signs (last 24 hours): Temp Pulse Resp BP Pulse Ox 98.5 F 102 H 20 109/68 97 08/20/18 10:29 08/20/18 10:29 08/20/18 10:29 08/20/18 10:29 08/20/18 10:29 Intake and Output: 08/20/18 08/20/18 06:59 18:59 Intake Total 0 Output Total 800 Balance -800 - Medications Medications: Current Medications Dextrose (Dextrose 50% Inj) 0 ml IV STAT PRN; Protocol PRN Reason: Hypoglycemia Protocol Furosemide (Lasix) 40 mg PEG DAILY [facility] Home Med (Home Med) 1 unit PEG TID [facility] Dextrose (Dextrose 5% In Water 1000 Ml) 1,000 mls @ 0 mls/hr IV .Q0M PRN; Protocol PRN Reason: Hypoglycemia Protocol Insulin Human Regular (Humulin R) 0 units SC ACHS [facility]; Protocol Last Admin: 08/20/18 11:37 Dose: Not Given Levothyroxine Sodium (Synthroid) 25 mcg PEG 0600 [facility] Metoprolol Tartrate (Lopressor) 25 mg GT BRKDIN [facility] Pantoprazole Sodium (Protonix Susp) 40 mg PEG 0600 [facility] Potassium Chloride (Potassium Chloride Oral Soln) 20 meq PEG BID [facility] - Labs Labs: 08/20/18 06:25 08/20/18 06:25 PT 13.7 SECONDS (9.4-12.5) H 08/19/18 06:20 INR 1.21 08/19/18 06:20 APTT 26.1 Seconds (26.9-38.3) L 08/19/18 06:20 Assessment and Plan - Assessment and Plan (Free Text) Plan: Assessment: 83 yr.old female with pmh, chf, Afib, GI bleed, AR, s/p AICD Implant admitted for malfunctioning , obstucted GTube. Plan: pt. s/p g tube insertion today, feedings to be started, this afternoon, w. Glycerna boluses, 6x day PT rec. Tcu, anticipate DC to TCU if cardiac cleared, pending TCU Eval.
[2018-08-20] MEDS: [UNRECOGNIZED DRUG - OTHER] PEG SCH (17:42)
[2018-08-20] MEDS ORDERED: Home Med 1 UNIT PEG SCH (18:00)
[2018-08-21 00:16] VITALS: O2SAT 95
[2018-08-21] MEDS: Levothyroxine 25 MCG TAB PEG SCH (05:17)
[2018-08-21] MEDS ORDERED: Pantoprazole 40 mg Susp UD PEG SCH (06:00)
[2018-08-21 06:34] LABS: CALCIUM 8.6 mg/dL (8.4-10.5)
[2018-08-21 06:43] LABS: BASO # 0.02 K/mm3 (0.0-2.0); BASO % 0.3 % (0.0-3.0); EOS % 0.1 % (1.5-5.0); HEMOGLOBIN 8.5 g/dL (12.0-16.0); LYMPH # 1.4 (1.2-3.4); LYMPH % 17.7 % (22.0-35.0); MEAN CELL VOLUME 98.9 fl (80.0-105.0); MEAN CORPUSCULAR HEMOGLOBIN 30.6 pg (25.0-35.0); MEAN CORPUSCULAR HGB CONC 30.9 g/dl (31.0-37.0); MEAN PLATELET VOLUME 10.4 fl (7.0-11.0); MONO % 13.4 % (1.0-6.0); RBC 2.78 10^6/uL (3.5-6.1); RED CELL DISTRIBUTION WIDTH 19.8 % (11.5-14.5); WHITE BLOOD COUNT 7.8 10^3/uL (4.5-11.0)
[2018-08-21] MEDS: Insulin Regular 1 UNITS/0.01 ML ML SC SCH ×4 (07:30→22:04)
--- NOTE | 2018-08-21 08:27 | RAD ---
Date of service: 08/21/2018 HISTORY: pleural effusion COMPARISON: 08/18/2018 FINDINGS: LUNGS: No active pulmonary disease. PLEURA: moderate bilateral pleural effusions. CARDIOVASCULAR: Aortic calcification Moderate cardiomegaly moderate vascular congestion OSSEOUS STRUCTURES: No significant abnormalities. VISUALIZED UPPER ABDOMEN: Normal. OTHER FINDINGS: None. IMPRESSION: Moderate vascular congestion and moderate bilateral pleural effusions
[2018-08-21] MEDS: [UNRECOGNIZED DRUG - OTHER] PEG SCH ×3 (10:30→18:16)
--- NOTE | 2018-08-21 13:40 | CP.PCM.DIS ---
<Ibrahima Carlton - Last Filed: 08/21/18 14:24> Provider - Provider Date of Admission: 08/18/18 20:01 Attending physician: Hope Neal MD Primary care physician: Daren Badleras MD Consults: 08/18/18 20:03 Physician Consult Routine Comment: malfunctioned peg tube Consulting Provider: [place] V Consulting Physician: [place] V Reason for Consult: malfunctioned peg tube Additional Comments: PA spoke to MD, and MD saw pt in the ER 08/18/18 20:04 Physician Consult Routine Comment: CHF exacerbation Consulting Provider: Judson Boykin Consulting Physician: Judson Boykin Reason for Consult: CHF exacerbation, a. fib Additional Comments: pt has CHF, with b/l pleural effusion 08/18/18 21:42 Physician Consult Routine Comment: Consulting Provider: Yobany Bryan Consulting Physician: Yobany Bryan Reason for Consult: Clogged peg tube 08/18/18 22:23 Case Management Referral Routine Comment: NEEDS ASSISTANCE AT HOME Physician Instructions: Reason For Exam: EVALUATION Reason for Referral: Manager Books Eval Inpatient DIAL PRINTER Core Measures Referral Routine Comment: CHF Physician Instructions: Reason For Exam: EVALUATION Nursing Referral for Wound Care Routine Comment: AT RISK FOR SKIN BREAKDOWN.SACRAL REDNESS,PEG TUBE Physician Instructions: Reason For Exam: EVALUATION Transition In Care/Readmission Reduction Routine Comment: Physician Instructions: Reason For Exam: EVALUATION 08/18/18 22:28 Nursing Referral for Palliative Care Routine Comment: Physician Instructions: Reason For Exam: EVALUATION Social Work Referral Routine Comment: DISCHARGE PLANNING WITH ASSISTANCE AT HOME Physician Instructions: Reason For Exam: EVALUATION 08/19/18 10:15 Physician Consult Routine Comment: Consulting Provider: Yobany Bryan Consulting Physician: Yobany Bryan Reason for Consult: peg tube replacement 08/20/18 13:30 Evaluation for TRCU Routine Comment: Physician Instructions: Reason For Exam: weakness; deconditioning 08/20/18 16:16 TCU [Evaluation for TRCU] Routine Comment: Physician Instructions: Reason For Exam: weakness, deconditioned. Time Spent in preparation of Discharge (in minutes): 60 Hospital Course - Lab Results Lab Results: Most Recent Lab Values WBC 7.8 10^3/uL (4.5-11.0) 08/21/18 06:00 RBC 2.78 10^6/uL (3.5-6.1) L 08/21/18 06:00 Hgb 8.5 g/dL (12.0-16.0) L 08/21/18 06:00 Hct 27.5 % (36.0-48.0) L 08/21/18 06:00 MCV 98.9 fl (80.0-105.0) 08/21/18 06:00 MCH 30.6 pg (25.0-35.0) 08/21/18 06:00 MCHC 30.9 g/dl (31.0-37.0) L 08/21/18 06:00 RDW 19.8 % (11.5-14.5) H 08/21/18 06:00 Plt Count 253 10^3/uL (120.0-450.0) 08/21/18 06:00 MPV 10.4 fl (7.0-11.0) 08/21/18 06:00 Neut % (Auto) 68.5 % (50.0-68.0) H 08/21/18 06:00 Lymph % (Auto) 17.7 % (22.0-35.0) L 08/21/18 06:00 Ness % (Auto) 13.4 % (1.0-6.0) H 08/21/18 06:00 Eos % (Auto) 0.1 % (1.5-5.0) L 08/21/18 06:00 Baso % (Auto) 0.3 % (0.0-3.0) 08/21/18 06:00 Lymph # (Auto) 1.4 (1.2-3.4) 08/21/18 06:00 Ness # (Auto) 1.0 (0.1-0.6) H 08/21/18 06:00 Eos # (Auto) 0.0 (0.0-0.7) 08/21/18 06:00 Baso # (Auto) 0.02 K/mm3 (0.0-2.0) 08/21/18 06:00 Absolute Neuts (auto) 5.31 (1.4-6.5) 08/21/18 06:00 Retic Count 3.96 % (0.5-1.5) H 08/19/18 06:20 PT 13.7 SECONDS (9.4-12.5) H 08/19/18 06:20 INR 1.21 08/19/18 06:20 APTT 26.1 Seconds (26.9-38.3) L 08/19/18 06:20 Sodium 136 mmol/L (132-148) 08/21/18 06:00 Potassium 4.1 mmol/L (3.6-5.0) 08/21/18 06:00 Chloride 101 mmol/L (98-107) 08/21/18 06:00 Carbon Dioxide 30 mmol/L (21-33) 08/21/18 06:00 Anion Gap 9 (10-20) L 08/21/18 06:00 BUN 37 mg/dL (7-21) H 08/21/18 06:00 Creatinine 1.2 mg/dl (0.7-1.2) 08/21/18 06:00 Est GFR ( Amer) 52 08/21/18 06:00 Est GFR (Non-Af Amer) 43 08/21/18 06:00 POC Glucose (mg/dL) 134 mg/dL (65-110) H 08/21/18 11:43 Random Glucose 148 mg/dL (70-110) H 08/21/18 06:00 Calcium 8.6 mg/dL (8.4-10.5) 08/21/18 06:00 Phosphorus 4.5 mg/dL (2.5-4.5) 08/19/18 20:18 Magnesium 2.1 mg/dL (1.7-2.2) 08/19/18 20:18 Iron 39 ug/dL (45-180) L 08/19/18 06:20 TIBC 297 ug/dL (265-497) 08/19/18 06:20 % Saturation 13 % (20-55) L 08/19/18 06:20 Ferritin 74.4 ng/mL 08/19/18 06:20 Total Bilirubin 0.8 mg/dL (0.2-1.3) 08/19/18 06:20 AST 36 U/L (14-36) D 08/19/18 06:20 ALT 24 U/L (7-56) 08/19/18 06:20 Alkaline Phosphatase 161 U/L (38-126) H D 08/19/18 06:20 Troponin I 0.04 ng/mL D 08/20/18 08:00 NT-Pro-B Natriuret Pep 50409 pg/mL (0-450) H 08/18/18 17:54 Total Protein 6.8 g/dL (5.8-8.3) 08/19/18 06:20 Albumin 3.0 g/dL (3.0-4.8) 08/19/18 06:20 Globulin 3.8 gm/dL 08/19/18 06:20 Albumin/Globulin Ratio 0.8 (1.1-1.8) L 08/19/18 06:20 TSH 3rd Generation 6.56 mIU/mL (0.46-4.68) H 08/19/18 09:39 - Hospital Course Hospital Course: Discharge Summary for Dr. Neal 83 year old female, past medical history of Atrial fibrillation w/ AICD, CHF, GI Bleed, Chronic Leukemia, Hypothyroidism, Macular Degeneration, and Gout, presented with a malfunctioning PEG tube. Gastroenterology was consulted however the PEG was unable to be flushed and sizing was incompatible with GI materials. Interventional Radiology was consulted and exchanged her PEG tube the following day and upsized it from 14Fr to 18Fr. Patient subsequently started tube feeds that evening and was given PO meds through the PEG. Tube feeds were scheduled from 6PM to 6AM of Glucerna at 80cc/hr. Patient tolerated feeds and tube remained patient. During her admission, patient went into Atrial Fibrillation. Cardiology was consulted who started her on Metoprolol. No anticoagulation had been given secondary to her history of GI bleeds. Patient remained stable and was evaluated for Transitional Care per physical therapy's recommendation. Patient to be discharged to TCU secondary to deconditioning. Above is a brief summary. For detailed hospital course please refer to medical records. - Date & Time of H&P Date of H&P: 08/18/18 Time of H&P: 22:35 Discharge Exam - Head Exam Head Exam: ATRAUMATIC, NORMAL INSPECTION, NORMOCEPHALIC - Eye Exam Eye Exam: EOMI - ENT Exam ENT Exam: Mucous Membranes Dry - Respiratory Exam Respiratory Exam: Clear to PA & Lateral, NORMAL BREATHING PATTERN, UNREMARKABLE. absent: Respiratory Distress - Cardiovascular Exam Cardiovascular Exam: REGULAR RHYTHM. absent: Tachycardia, Systolic Murmur - GI/Abdominal Exam GI & Abdominal Exam: Normal Bowel Sounds, Soft. absent: Distended, Tenderness - Neurological Exam Neurological exam: Alert, Oriented x3 - Psychiatric Exam Psychiatric exam: Normal Affect, Normal Mood - Skin Skin Exam: Dry, Intact, Normal Color, Warm Discharge Plan - Follow Up Plan Condition: FAIR Disposition: TRANSF TO SNF Instructions: Heart Failure, Adult (DC), Heart Failure (DC), Pacemaker (DC), Pulmonary Edema (DC), Ascites (DC) Additional Instructions: PATIENT TO GO TRCU. MD TO FOLLOW. Referrals: Daren Balderas MD [Primary Care Provider] - <Hope Neal - Last Filed: 08/22/18 15:23> Provider - Provider Date of Admission: 08/18/18 20:01 Attending physician: Hope Neal MD Primary care physician: Daren Balderas MD Consults: 08/18/18 20:03 Physician Consult Routine Comment: malfunctioned peg tube Consulting Provider: [place] V Consulting Physician: [place] V Reason for Consult: malfunctioned peg tube Additional Comments: PA spoke to MD, and saw pt in the ER 08/18/18 20:04 Physician Consult Routine Comment: CHF exacerbation Consulting Provider: Judson Boykin Consulting Physician: Judson Boykin Reason for Consult: CHF exacerbation, a. fib Additional Comments: pt has CHF, with b/l pleural effusion 08/18/18 21:42 Physician Consult Routine Comment: Consulting Provider: Yobany Bryan Consulting Physician: Yobany Bryan Reason for Consult: Clogged peg tube 08/18/18 22:23 Case Management Referral Routine Comment: NEEDS ASSISTANCE AT HOME Physician Instructions: Reason For Exam: EVALUATION Reason for Referral: Manager Books Eval Inpatient DIAL PRINTER Core Measures Referral Routine Comment: CHF Physician Instructions: Reason For Exam: EVALUATION Nursing Referral for Wound Care Routine Comment: AT RISK FOR SKIN BREAKDOWN.SACRAL REDNESS,PEG TUBE Physician Instructions: Reason For Exam: EVALUATION Transition In Care/Readmission Reduction Routine Comment: Physician Instructions: Reason For Exam: EVALUATION 08/18/18 22:28 Nursing Referral for Palliative Care Routine Comment: Physician Instructions: Reason For Exam: EVALUATION Social Work Referral Routine Comment: DISCHARGE PLANNING WITH ASSISTANCE AT HOME Physician Instructions: Reason For Exam: EVALUATION 08/19/18 10:15 Physician Consult Routine Comment: Consulting Provider: Yobany Bryan Consulting Physician: Yobany Bryan Reason for Consult: peg tube replacement 08/20/18 13:30 Evaluation for TRCU Routine Comment: Physician Instructions: Reason For Exam: weakness; deconditioning 08/20/18 16:16 TCU [Evaluation for TRCU] Routine Comment: Physician Instructions: Reason For Exam: weakness, deconditioned. Hospital Course - Lab Results Lab Results: Most Recent Lab Values WBC 7.8 10^3/uL (4.5-11.0) 08/21/18 06:00 RBC 2.78 10^6/uL (3.5-6.1) L 08/21/18 06:00 Hgb 8.5 g/dL (12.0-16.0) L 08/21/18 06:00 Hct 27.5 % (36.0-48.0) L 08/21/18 06:00 MCV 98.9 fl (80.0-105.0) 08/21/18 06:00 MCH 30.6 pg (25.0-35.0) 08/21/18 06:00 MCHC 30.9 g/dl (31.0-37.0) L 08/21/18 06:00 RDW 19.8 % (11.5-14.5) H 08/21/18 06:00 Plt Count 253 10^3/uL (120.0-450.0) 08/21/18 06:00 MPV 10.4 fl (7.0-11.0) 08/21/18 06:00 Neut % (Auto) 68.5 % (50.0-68.0) H 08/21/18 06:00 Lymph % (Auto) 17.7 % (22.0-35.0) L 08/21/18 06:00 Ness % (Auto) 13.4 % (1.0-6.0) H 08/21/18 06:00 Eos % (Auto) 0.1 % (1.5-5.0) L 08/21/18 06:00 Baso % (Auto) 0.3 % (0.0-3.0) 08/21/18 06:00 Lymph # (Auto) 1.4 (1.2-3.4) 08/21/18 06:00 Ness # (Auto) 1.0 (0.1-0.6) H 08/21/18 06:00 Eos # (Auto) 0.0 (0.0-0.7) 08/21/18 06:00 Baso # (Auto) 0.02 K/mm3 (0.0-2.0) 08/21/18 06:00 Absolute Neuts (auto) 5.31 (1.4-6.5) 08/21/18 06:00 Differential Comment See pathology report 08/19/18 06:20 Retic Count 3.96 % (0.5-1.5) H 08/19/18 06:20 PT 13.7 SECONDS (9.4-12.5) H 08/19/18 06:20 INR 1.21 08/19/18 06:20 APTT 26.1 Seconds (26.9-38.3) L 08/19/18 06:20 Sodium 136 mmol/L (132-148) 08/21/18 06:00 Potassium 4.1 mmol/L (3.6-5.0) 08/21/18 06:00 Chloride 101 mmol/L (98-107) 08/21/18 06:00 Carbon Dioxide 30 mmol/L (21-33) 08/21/18 06:00 Anion Gap 9 (10-20) L 08/21/18 06:00 BUN 37 mg/dL (7-21) H 08/21/18 06:00 Creatinine 1.2 mg/dl (0.7-1.2) 08/21/18 06:00 Est GFR ( Amer) 52 08/21/18 06:00 Est GFR (Non-Af Amer) 43 08/21/18 06:00 POC Glucose (mg/dL) 114 mg/dL (65-110) H 08/22/18 11:38 Random Glucose 148 mg/dL (70-110) H 08/21/18 06:00 Calcium 8.6 mg/dL (8.4-10.5) 08/21/18 06:00 Phosphorus 4.5 mg/dL (2.5-4.5) 08/19/18 20:18 Magnesium 2.1 mg/dL (1.7-2.2) 08/19/18 20:18 Iron 39 ug/dL (45-180) L 08/19/18 06:20 TIBC 297 ug/dL (265-497) 08/19/18 06:20 % Saturation 13 % (20-55) L 08/19/18 06:20 Ferritin 74.4 ng/mL 08/19/18 06:20 Total Bilirubin 0.8 mg/dL (0.2-1.3) 08/19/18 06:20 AST 36 U/L (14-36) D 08/19/18 06:20 ALT 24 U/L (7-56) 08/19/18 06:20 Alkaline Phosphatase 161 U/L (38-126) H D 08/19/18 06:20 Troponin I 0.04 ng/mL D 08/20/18 08:00 NT-Pro-B Natriuret Pep 12914 pg/mL (0-450) H 08/18/18 17:54 Total Protein 6.8 g/dL (5.8-8.3) 08/19/18 06:20 Albumin 3.0 g/dL (3.0-4.8) 08/19/18 06:20 Globulin 3.8 gm/dL 08/19/18 06:20 Albumin/Globulin Ratio 0.8 (1.1-1.8) L 08/19/18 06:20 TSH 3rd Generation 6.56 mIU/mL (0.46-4.68) H 08/19/18 09:39 Attending/Attestation - Attestation I have personally seen and examined this patient.: Yes I have fully participated in the care of the patient.: Yes I have reviewed all pertinent clinical information, including history, physical exam and plan: Yes Notes (Text): 08/22/18 15:19 Patient was seen and examined with product manager medical device. 83F, with PMH prior GA, paroxysmal a-fib not on anticoagulation due to H/O GI bleeding,CHF with systolic dysfunction .SP AICD ,oblique fracture of the base of the odontoid 07/05 was managed conservatively, DM, macular degeneration, gout, and chronic leukemia (on Bosutinib),was admitted for PEG tube malfunction.She was also found to have acute on chronic systolic CHF exacerbation and hyponatremia due to CHF exacerbation. CHF is improving, on oral lasix now, Hyponatremia has improved with diuresis. AF with RVR, rate is controlled with Metoprolol. Patient is SP PEG tube replacement by IR and is tolerating feeding Patient was evaluated by physical therapy and was recommended TCU rehabilitation. Patient will be discharged to TCU , discharge date is 08/22/18, Management plan was discussed in detail with patient and daughter who is at bed side. Education was provided
[2018-08-21] MEDS: BOSUTINIB 100 MG PEG SCH ×2 (15:03→22:05)
--- NOTE | 2018-08-21 21:28 | PN ---
DATE: 08/21/2018 SUBJECTIVE: The patient is seen lying in bed on remote telemetry. She is currently comfortable. Her gastrostomy tube was exchanged for a larger size yesterday. She denies any complaints at the present time. CURRENT MEDICATIONS: Include bosutinib, Lasix 40 mg daily, metoprolol 25 mg b.i.d., Protonix, and Synthroid. OBJECTIVE: GENERAL: She is a very elderly woman appears chronically ill. VITAL SIGNS: Blood pressure is 140/60, pulse of 60 and currently in sinus rhythm with occasional PVC noted, she has previously had atrial fibrillation, respirations are 16, and she is afebrile. HEENT: Temporal wasting present. CHEST: Diminished breath sounds at the bases. HEART: PMI displaced laterally with systolic murmur at the left sternal border. ABDOMEN: Soft. Bowel sounds are present. Gastrostomy tube is in place. EXTREMITIES: No edema. DIAGNOSTIC DATA: White count 7.8, hemoglobin and hematocrit 8.5 and 27.5 with platelet count of 253,000. Potassium 4.1, BUN and creatinine 37 and 1.2. IMPRESSION: 1. Decompensated congestive heart failure, [id number] combined systolic and diastolic, clinically improved. 2. Recent clotted gastrostomy tube, now exchanged. 3. Recent cervical neck fracture, being managed conservatively. 4. Coronary artery disease, remote myocardial infarction, stable at present. RECOMMENDATIONS: Her current medical management will continue for now. A physical therapy and transfer to Transitional Care Unit is being planned. Sodium restriction will be implemented. I will continue to follow any further any further recommendations as appropriate. Judson Boykin MD
[2018-08-22] MEDS ORDERED: Levothyroxine 50 MCG TAB PEG SCH (07:30)
[2018-08-22 08:08] VITALS: BP 133/61; RESP 18; TEMP 97.6
[2018-08-22] MEDS: Insulin Regular 1 UNITS/0.01 ML ML SC SCH ×2 (08:28→11:44)
[2018-08-22] MEDS ORDERED: Pantoprazole 40 mg Susp UD PO SCH (10:00)
[2018-08-22] MEDS ORDERED: Furosemide 40 mg/5 mL Oral Soln UD PEG SCH (10:00)
[2018-08-22] MEDS: [UNRECOGNIZED DRUG - OTHER] PEG SCH ×2 (10:33→13:17)
--- NOTE | 2018-08-22 11:45 | PN ---
DATE: 08/22/2018 SUBJECTIVE: The patient is seen lying in bed on 3R. She is currently comfortable at rest. She awaits transfer to the TCU. She remains in sinus rhythm and her edema has improved. CURRENT MEDICATIONS: Include bosutinib, insulin coverage, Lasix 40 mg daily, metoprolol 25 mg b.i.d., potassium 20 mEq b.i.d., Protonix, Synthroid. PHYSICAL EXAMINATION: GENERAL: She is a very elderly woman who is comfortable at the present time. VITAL SIGNS: Blood pressure is 132/62 with a pulse of 66 in sinus, respirations are 14. She is afebrile. HEENT: A cervical hard collar is in place. CHEST: Clear to auscultation anteriorly. HEART: Soft systolic murmur present in the lower left sternal border. ABDOMEN: Soft, nontender, normoactive bowel sounds. Gastrostomy tube is in place. EXTREMITIES: With no edema. DIAGNOSTIC DATA: No blood work pending from this morning. IMPRESSION: 1. Decompensated congestive heart failure, acute on chronic, combined systolic and diastolic, appears clinically improved. 2. Recent cervical neck fracture, being managed conservatively with hard collar in place for several months. 3. Recent clotted gastrostomy tube, exchanged for a larger size, now functional. 4. Coronary artery disease, status post remote myocardial infarction, appears stable at the present time. 5. Paroxysmal atrial fibrillation, currently in sinus rhythm. Not anticoagulated given recent fall, cervical neck fracture and risk for self injury. 6. Conduction system disease, status post permanent pacemaker implant. RECOMMENDATIONS: Her current medications will continue for now. From a cardiac standpoint, she appears stable for transfer to the transitional care unit. Increase activity as tolerated is advised. Sodium restriction will be continued. Rate control therapy for paroxysmal atrial fibrillation will continue as well. We will follow along as needed. Judson Boykin MD
[2018-08-22] MEDS: BOSUTINIB 100 MG PEG SCH (13:17)
[2018-08-22 14:07] VITALS: PULSE 60
--- NOTE | 2018-08-22 14:13 | CP.PCM.PN ---
<Stephen Conn - Last Filed: 08/22/18 14:07> Subjective - Date & Time of Evaluation Date of Evaluation: 08/22/18 Time of Evaluation: 09:07 - Subjective Subjective: PGY-1 Medicine progress note for Dr. Neal Patient seen and examined this morning. Patient will be discharged to TCU today. Please refer to discharge summary from 08/21/2018. Objective - Vital Signs/Intake and Output Vital Signs (last 24 hours): Temp Pulse Resp BP Pulse Ox 97.6 F 60 18 133/61 95 08/22/18 06:00 08/22/18 14:00 08/22/18 06:00 08/22/18 10:33 08/22/18 06:00 Intake and Output: 08/22/18 08/22/18 06:59 18:59 Intake Total 0 1500 Output Total 200 Balance -200 1500 - Medications Medications: Current Medications Acetaminophen (Tylenol 325mg Tab) 650 mg PO Q6H PRN PRN Reason: Pain, moderate (4-7) Dextrose (Dextrose 50% Inj) 0 ml IV STAT PRN; Protocol PRN Reason: Hypoglycemia Protocol Furosemide (Lasix) 40 mg PEG DAILY [facility] Last Admin: 08/22/18 10:33 Dose: 40 mg Home Med (Home Med) 1 unit PEG TID [facility] Last Admin: 08/22/18 13:17 Dose: 1 unit Dextrose (Dextrose 5% In Water 1000 Ml) 1,000 mls @ 0 mls/hr IV .Q0M PRN; Protocol PRN Reason: Hypoglycemia Protocol Insulin Human Regular (Humulin R) 0 units SC ACHS [facility]; Protocol Last Admin: 08/22/18 11:44 Dose: Not Given Levothyroxine Sodium (Synthroid) 50 mcg PEG ACB [facility] Last Admin: 08/22/18 08:44 Dose: 50 mcg Loratadine (Claritin) 10 mg PO DAILY [facility] Stop: 08/26/18 10:01 Last Admin: 08/22/18 11:43 Dose: 10 mg Metoprolol Tartrate (Lopressor) 25 mg GT BRKDIN [facility] Last Admin: 08/22/18 08:44 Dose: 25 mg Non-Formulary Medication (Bosutinib [Bosulif]) 100 mg PEG Q8 [facility] Last Admin: 08/22/18 13:17 Dose: Not Given Pantoprazole Sodium (Protonix Susp) 40 mg PO DAILY [facility] Last Admin: 08/22/18 10:33 Dose: 40 mg Potassium Chloride (Potassium Chloride Oral Soln) 20 meq PEG BID [facility] - Labs Labs: 08/21/18 06:00 08/21/18 06:00 PT 13.7 SECONDS (9.4-12.5) H 08/19/18 06:20 INR 1.21 08/19/18 06:20 APTT 26.1 Seconds (26.9-38.3) L 08/19/18 06:20 - Additional Findings Additional findings: - Head Exam Head Exam: ATRAUMATIC, NORMAL INSPECTION, NORMOCEPHALIC - Eye Exam Eye Exam: EOMI - ENT Exam ENT Exam: Mucous Membranes Dry - Respiratory Exam Respiratory Exam: Clear to PA & Lateral, NORMAL BREATHING PATTERN, UNREMARKABLE. absent: Respiratory Distress - Cardiovascular Exam Cardiovascular Exam: REGULAR RHYTHM. absent: Tachycardia, Systolic Murmur - GI/Abdominal Exam GI & Abdominal Exam: Normal Bowel Sounds, Soft. absent: Distended, Tenderness - Neurological Exam Neurological exam: Alert, Oriented x3 - Psychiatric Exam Psychiatric exam: Normal Affect, Normal Mood - Skin Skin Exam: Dry, Intact, Normal Color, Warm Assessment and Plan - Assessment and Plan (Free Text) Assessment: This is an 83F, with PMH prior PA, paroxysmal a-fib, left ventricular systolic dysfunction s/p AICD, CHF, DM, macular degeneration, gout, and chronic leukemia (on Bosutinib), admitted for PEG tube malfunction. Plan: PEG Tube Malfunction - PEG tube replaced by IR - Continue tube feeds - Monitor PEG site for drainage/leakage. Dressing changes PRN Hx of Atrial Fibrillation - Started on Metoprolol 25mg BID per cardio - No anticoagulation secondary to hx of GI bleed and fall risk Acute on Chronic CHF Exacerbation - Continue Lasix 40mg QD - Daily weights - Strict I&Os - Physical therapy recommends TCU SOFÍA - Monitor daily labs - Avoid nephrotoxic medications Hx of Diabetes - ISS, low - Hypoglycemic protocol - Most recent Hgb A1c:6.3 PPX: - GI: Protonix 40mg Q12 - DVT: Leg elevation, hold SCDs Dispo: Discharge to TCU Patient plan discussed with Dr. Val Conn, PGY-1 <Hope Neal - Last Filed: 08/22/18 15:25> Objective - Vital Signs/Intake and Output Vital Signs (last 24 hours): Temp Pulse Resp BP Pulse Ox 97.6 F 60 18 133/61 95 08/22/18 06:00 08/22/18 14:00 08/22/18 06:00 08/22/18 10:33 08/22/18 06:00 Intake and Output: 08/22/18 08/22/18 06:59 18:59 Intake Total 0 1500 Output Total 200 Balance -200 1500 - Labs Labs: 08/21/18 06:00 08/21/18 06:00 PT 13.7 SECONDS (9.4-12.5) H 08/19/18 06:20 INR 1.21 08/19/18 06:20 APTT 26.1 Seconds (26.9-38.3) L 08/19/18 06:20 Attending/Attestation - Attestation I have personally seen and examined this patient.: Yes I have fully participated in the care of the patient.: Yes I have reviewed all pertinent clinical information, including history, physical exam and plan: Yes Notes (Text): 08/22/18 15:24 atient was seen and examined with medical imaging tech. 83 yearls old Female with PMH prior PA, paroxysmal a-fib not on anticoagulation due to H/O GI bleeding,CHF with systolic dysfunction .SP AICD ,oblique fracture of the base of the odontoid 07/05 was managed conservatively, DM, macular degeneration, gout, and chronic leukemia (on Bosutinib),was admitted for PEG tube malfunction.She was also found to have acute on chronic systolic CHF exacerbation and hyponatremia due to CHF exacerbation. CHF is improving, on oral lasix now,leg swelling and dyspnea has improved. Hyponatremia has improved with diuresis. AF with RVR, rate is controlled with Metoprolol, not on anticoagulation due to H/O GI bleeding. Patient is SP PEG tube replacement by IR and is tolerating feeding Patient was evaluated by physical therapy and was recommended TCU rehabilitation. Patient will be discharged to TCU for rehabilitation, Management plan was discussed in detail with patient and daughter who is at bed side. Education
== END 2018-08-22 14:21 | DRG 393 ==
LOC: ED 15:46 → ERH 20:01 → 3RSO 22:24
PROVIDERS: ADMIT Internal Medicine; ATTEND Internal Medicine
PROC: 0D20XUZ Change Feeding Device in Upper Intestinal Tract, External Approach (ICD-10-PCS; principal; 2018-08-20)
DX: K94.23 Gastrostomy malfunction (principal); I50.43 Acute on chronic combined systolic (congestive) and diastolic (congestive) heart failure; N17.9 Acute kidney failure, unspecified; E87.1 Hypo-osmolality and hyponatremia; C95.10 Chronic leukemia of unspecified cell type not having achieved remission; I11.0 Hypertensive heart disease with heart failure; E86.0 Dehydration; R13.10 Dysphagia, unspecified; I48.0 Paroxysmal atrial fibrillation; H35.30 Unspecified macular degeneration; E11.9 Type 2 diabetes mellitus without complications; E87.5 Hyperkalemia; D64.9 Anemia, unspecified; I25.5 Ischemic cardiomyopathy; E03.9 Hypothyroidism, unspecified; I25.10 Atherosclerotic heart disease of native coronary artery without angina pectoris; M10.9 Gout, unspecified; Z96.651 Presence of right artificial knee joint; S12.110D Anterior displaced Type II dens fracture, subsequent encounter for fracture with routine healing; W19.XXXD Unspecified fall, subsequent encounter; H91.90 Unspecified hearing loss, unspecified ear; Z97.4 Presence of external hearing-aid; I25.2 Old myocardial infarction; Z95.810 Presence of automatic (implantable) cardiac defibrillator; Z79.4 Long term (current) use of insulin; Z79.899 Other long term (current) drug therapy

== ENCOUNTER 2018-08-22 14:25 | Inpatient (IN) | payer OTHER, MEDICARE | END 2018-08-30 13:27 | disposition home or self-care (01) | LOC: TRCU 14:25 ==